=== PATIENT | male | born 1965 | race Caucasian/White ===

== ENCOUNTER 2020-06-12 01:22 | Outpatient (RCR) | payer MEDICAID, SELFPAY | END 2020-06-30 23:59 | disposition home or self-care (01) | LOC: INF 01:22 | PROVIDERS: PCP Family Medicine; Visit Provider Internal Medicine Medical Oncology | DX: R69 Illness, unspecified (principal) ==

== ENCOUNTER 2020-07-10 02:32 | Outpatient (CLI) | payer MEDICAID, SELFPAY | END 2020-07-10 02:52 | PROVIDERS: PCP Family Medicine; Visit Provider Internal Medicine Medical Oncology | DX: C15.5 Malignant neoplasm of lower third of esophagus (principal) | CPT/HCPCS: 36415; 80053; 86850; 86900; 86901; 85025 ==

== ENCOUNTER 2020-07-11 01:39 | Outpatient (RCR) | payer MEDICAID, SELFPAY ==
[2020-07-10 09:26] LABS: Abs Immature Grans 0.06 10^3/uL (0.0-0.06); Absolute Basophil Count 0.03 10^3/uL (0.0-0.2); Absolute Eosinophil Count 0.17 10^3/uL (0.0-0.7); Absolute Lymphocyte Count 0.64 10^3/uL (1.2-3.4); Absolute Monocyte Count 0.43 10^3/uL (0.1-0.8); Absolute Neutrophil Count 3.08 10^3/uL (1.2-6.7); Basophils % 0.7; Eosinophils % 3.9; HCT 21.7 % (40.0-50.0); Immature Grans % 1.4; Lymphocytes % 14.5; MCH 30.2 pg (27.0-33.0); MCHC 32.3 % (32.0-36.0); MCV 93.5 fL (80-95); MPV 8.8 fL (8.0-11.0); Monocytes % 9.8; Neutrophils % 69.7; Nucleated RBC 0 %; RBC 2.32 10^6/uL (4.36-5.78); RDW 13.9 % (11.8-14.1); RDW-SD 46.7 fL; WBC 4.41 10^3/uL (4.4-10.8)
[2020-07-10 09:47] LABS: ALT 12 U/L (16-63); AST 10 U/L (15-37); Albumin 2.5 g/dL (3.4-5.0); Alkaline Phosphatase 41 U/L (46-116); Anion Gap 8.8 mmol/L (3-11); BUN 11 mg/dL (7-18); Bilirubin, Total 0.2 mg/dL (0.2-1.0); CO2 25.2 mmol/L (21.0-32.0); CREATININE 0.76 mg/dL (0.70-1.30); Calcium 8.5 mg/dL (8.5-10.1); Chloride 104 mmol/L (98-107); Glucose 107 mg/dL (74-106); Potassium 4.2 mmol/L (3.5-5.1); Sodium 138 mmol/L (136-145); Total Protein 6.6 g/dL (6.4-8.2)
[2020-07-10 10:26] LABS: Platelet Count 462 10^3/uL (130-400)
[2020-07-10 10:51] LABS: Diff Comment RBC Morph Reviewed
[2020-07-10 10:52] LABS: Poikilocytes 2+
[2020-07-10 10:53] LABS: Hypochromasia 2+; Polychromasia Present
[2020-07-11] VITALS (14 sets, daily range): BP systolic 119–153; BP diastolic 68–82; PULSE 96–123; RESP 17–19; TEMP 36–36.7; O2SAT 99–100
[2020-07-11] MEDS: Acetaminophen Solution 650 MG/20.3 ML CUP 1000 MG PO (09:25)
[2020-07-11] MEDS: Normal Saline Flush 10 ML SYR IVP (09:44)
[2020-07-11] MEDS: Ibuprofen 800 MG TAB PO (14:04)
== END 2020-07-31 23:59 | disposition home or self-care (01) ==
LOC: INF 01:39
PROVIDERS: Internal Medicine Medical Oncology; PCP Family Medicine; Visit Provider Nurse Practitioner Family
DX: C15.5 Malignant neoplasm of lower third of esophagus (principal); R19.7 Diarrhea, unspecified; D63.0 Anemia in neoplastic disease
CPT/HCPCS: 36415; 36430; 80053; 86850; 86900; 86901; 86920; 85025; P9016

== ENCOUNTER 2020-07-17 01:55 | Outpatient (CLI) | payer MEDICAID, SELFPAY ==
[2020-07-17 08:26] LABS: Abs Immature Grans 0.05 10^3/uL (0.0-0.06); Absolute Basophil Count 0.02 10^3/uL (0.0-0.2); Absolute Eosinophil Count 0.07 10^3/uL (0.0-0.7); Absolute Lymphocyte Count 0.48 10^3/uL (1.2-3.4); Absolute Neutrophil Count 2.64 10^3/uL (1.2-6.7); Basophils % 0.5; Eosinophils % 1.9; Immature Grans % 1.4; Lymphocytes % 13.1; MCH 30.9 pg (27.0-33.0); MCHC 33.3 % (32.0-36.0); MCV 92.7 fL (80-95); Monocytes % 10.9; Neutrophils % 72.2; Nucleated RBC 0 %; Platelet Count 483 10^3/uL (130-400); RBC 3.56 10^6/uL (4.36-5.78); RDW 14.4 % (11.8-14.1); RDW-SD 47.8 fL; WBC 3.66 10^3/uL (4.4-10.8)
[2020-07-17 08:43] LABS: ALT 13 U/L (16-63); AST 11 U/L (15-37); Albumin 2.8 g/dL (3.4-5.0); Alkaline Phosphatase 51 U/L (46-116); Anion Gap 9.1 mmol/L (3-11); BUN 9 mg/dL (7-18); Bilirubin, Total 0.2 mg/dL (0.2-1.0); CO2 26.9 mmol/L (21.0-32.0); CREATININE 0.85 mg/dL (0.70-1.30); Calcium 8.8 mg/dL (8.5-10.1); Chloride 102 mmol/L (98-107); Glucose 116 mg/dL (74-106); Potassium 3.5 mmol/L (3.5-5.1); Sodium 138 mmol/L (136-145); Total Protein 7.4 g/dL (6.4-8.2)
== END 2020-07-17 02:15 ==
PROVIDERS: PCP Family Medicine; Visit Provider Internal Medicine Medical Oncology
DX: C15.5 Malignant neoplasm of lower third of esophagus (principal); R19.7 Diarrhea, unspecified
CPT/HCPCS: 36415; 80053; 86850; 86900; 86901; 85025

== ENCOUNTER 2020-07-24 02:11 | Outpatient (CLI) | payer MEDICAID, SELFPAY ==
[2020-07-24 08:23] LABS: Abs Immature Grans 0.03 10^3/uL (0.0-0.06); Absolute Basophil Count 0.03 10^3/uL (0.0-0.2); Absolute Eosinophil Count 0.04 10^3/uL (0.0-0.7); Absolute Lymphocyte Count 0.35 10^3/uL (1.2-3.4); Absolute Monocyte Count 0.66 10^3/uL (0.1-0.8); Basophils % 0.7; Eosinophils % 0.9; HCT 30.5 % (40.0-50.0); Immature Grans % 0.7; Lymphocytes % 7.6; MCH 30.8 pg (27.0-33.0); MCHC 32.8 % (32.0-36.0); MCV 93.8 fL (80-95); MPV 8.9 fL (8.0-11.0); Monocytes % 14.3; Neutrophils % 75.8; Nucleated RBC 0 %; Platelet Count 367 10^3/uL (130-400); RBC 3.25 10^6/uL (4.36-5.78); RDW 15.7 % (11.8-14.1); WBC 4.61 10^3/uL (4.4-10.8)
[2020-07-24 09:33] LABS: ALT 12 U/L (16-63); AST 8 U/L (15-37); Albumin 2.9 g/dL (3.4-5.0); Alkaline Phosphatase 46 U/L (46-116); Anion Gap 9.2 mmol/L (3-11); BUN 13 mg/dL (7-18); Bilirubin, Total 0.3 mg/dL (0.2-1.0); CO2 24.8 mmol/L (21.0-32.0); CREATININE 0.59 mg/dL (0.70-1.30); Calcium 8.6 mg/dL (8.5-10.1); Chloride 104 mmol/L (98-107); Glucose 101 mg/dL (74-106); Potassium 4.3 mmol/L (3.5-5.1); Sodium 138 mmol/L (136-145); Total Protein 6.2 g/dL (6.4-8.2)
== END 2020-07-24 02:31 ==
PROVIDERS: PCP Family Medicine; Visit Provider Internal Medicine Medical Oncology
DX: C15.5 Malignant neoplasm of lower third of esophagus (principal)
CPT/HCPCS: 36415; 80053; 86850; 86900; 86901; 85025

== ENCOUNTER 2020-07-31 04:37 | Outpatient (CLI) | payer MEDICAID, SELFPAY ==
[2020-07-31 08:27] LABS: Abs Immature Grans 0.05 10^3/uL (0.0-0.06); Absolute Basophil Count 0.02 10^3/uL (0.0-0.2); Absolute Eosinophil Count 0.03 10^3/uL (0.0-0.7); Absolute Lymphocyte Count 0.25 10^3/uL (1.2-3.4); Absolute Monocyte Count 0.55 10^3/uL (0.1-0.8); Absolute Neutrophil Count 2.82 10^3/uL (1.2-6.7); Basophils % 0.5; Eosinophils % 0.8; HCT 34.1 % (40.0-50.0); Immature Grans % 1.3; Lymphocytes % 6.7; MCH 30.6 pg (27.0-33.0); MCHC 32.6 % (32.0-36.0); MCV 93.9 fL (80-95); Monocytes % 14.8; Neutrophils % 75.9; Nucleated RBC 0 %; Platelet Count 306 10^3/uL (130-400); RBC 3.63 10^6/uL (4.36-5.78); RDW 16.5 % (11.8-14.1); RDW-SD 54.9 fL; WBC 3.72 10^3/uL (4.4-10.8)
[2020-07-31 08:32] LABS: HGB 11.4 g/dL (13.5-17.5)
[2020-07-31 08:40] LABS: ALT 16 U/L (16-63); AST 13 U/L (15-37); Albumin 3.1 g/dL (3.4-5.0); Alkaline Phosphatase 46 U/L (46-116); Anion Gap 11.2 mmol/L (3-11); BUN 12 mg/dL (7-18); Bilirubin, Total 0.3 mg/dL (0.2-1.0); CO2 24.8 mmol/L (21.0-32.0); CREATININE 0.75 mg/dL (0.70-1.30); Calcium 8.9 mg/dL (8.5-10.1); Chloride 100 mmol/L (98-107); Glucose 98 mg/dL (74-106); Potassium 4.1 mmol/L (3.5-5.1); Sodium 136 mmol/L (136-145); Total Protein 7.1 g/dL (6.4-8.2)
[2020-07-31 08:52] LABS: Magnesium 2.1 mg/dL (1.8-2.4)
== END 2020-07-31 04:57 ==
PROVIDERS: PCP Family Medicine; Visit Provider Internal Medicine Medical Oncology
DX: C15.5 Malignant neoplasm of lower third of esophagus (principal)
CPT/HCPCS: 36415; 80053; 86850; 86900; 86901; 83735; 85025

== ENCOUNTER 2020-08-21 08:52 | Outpatient (RCR) | payer MEDICAID, SELFPAY | END 2020-08-30 23:59 | disposition home or self-care (01) | LOC: INF 08:52 | PROVIDERS: PCP Family Medicine; Visit Provider Internal Medicine Medical Oncology | DX: Z53.9 Procedure and treatment not carried out, unspecified reason (principal) ==

== ENCOUNTER 2020-08-21 08:55 | Outpatient (CLI) | payer MEDICAID, SELFPAY ==
[2020-08-21 09:26] LABS: Abs Immature Grans 0.02 10^3/uL (0.0-0.06); Absolute Basophil Count 0.02 10^3/uL (0.0-0.2); Absolute Eosinophil Count 0.07 10^3/uL (0.0-0.7); Absolute Lymphocyte Count 0.32 10^3/uL (1.2-3.4); Absolute Monocyte Count 0.73 10^3/uL (0.1-0.8); Absolute Neutrophil Count 4.16 10^3/uL (1.2-6.7); Basophils % 0.4; Eosinophils % 1.3; HCT 33.7 % (40.0-50.0); HGB 10.8 g/dL (13.5-17.5); Immature Grans % 0.4; MCH 30.7 pg (27.0-33.0); MCV 95.7 fL (80-95); MPV 9.4 fL (8.0-11.0); Monocytes % 13.7; Neutrophils % 78.2; Nucleated RBC 0 %; Platelet Count 145 10^3/uL (130-400); RBC 3.52 10^6/uL (4.36-5.78); RDW 18.5 % (11.8-14.1); RDW-SD 64.9 fL; WBC 5.32 10^3/uL (4.4-10.8)
[2020-08-21 09:39] LABS: ALT 28 U/L (16-63); AST 19 U/L (15-37); Alkaline Phosphatase 64 U/L (46-116); Anion Gap 4.6 mmol/L (3-11); BUN 29 mg/dL (7-18); Bilirubin, Total 0.2 mg/dL (0.2-1.0); CO2 31.4 mmol/L (21.0-32.0); CREATININE 0.77 mg/dL (0.70-1.30); Chloride 101 mmol/L (98-107); Glucose 116 mg/dL (74-106); Magnesium 2.7 mg/dL (1.8-2.4); Potassium 4.5 mmol/L (3.5-5.1); Sodium 137 mmol/L (136-145)
[2020-08-21 16:10] LABS: PHOSPHORUS 3.9 mg/dL (2.6-4.7)
== END 2020-08-21 09:15 ==
PROVIDERS: PCP Family Medicine; Visit Provider Internal Medicine Medical Oncology
DX: C15.5 Malignant neoplasm of lower third of esophagus (principal)
CPT/HCPCS: 36415; 80053; 86900; 86901; 83735; 84100; 85025

== ENCOUNTER 2020-11-27 02:20 | Outpatient (RCR) | payer MEDICAID, SELFPAY ==
[2020-11-06] MEDS: Normal Saline Flush 10 ML SYR IVP (09:53)
[2020-11-06 10:02] LABS: Abs Immature Grans 0.03 10^3/uL (0.0-0.06); Absolute Basophil Count 0.03 10^3/uL (0.0-0.2); Absolute Eosinophil Count 0.32 10^3/uL (0.0-0.7); Absolute Lymphocyte Count 0.59 10^3/uL (1.2-3.4); Absolute Monocyte Count 0.51 10^3/uL (0.1-0.8); Absolute Neutrophil Count 6.73 10^3/uL (1.2-6.7); Basophils % 0.4; Eosinophils % 3.9; HGB 10.5 g/dL (13.5-17.5); Immature Grans % 0.4; Lymphocytes % 7.2; MCH 30.8 pg (27.0-33.0); MCHC 31.8 % (32.0-36.0); MCV 96.8 fL (80-95); MPV 9.6 fL (8.0-11.0); Monocytes % 6.2; Neutrophils % 81.9; Nucleated RBC 0 %; Platelet Count 331 10^3/uL (130-400); RBC 3.41 10^6/uL (4.36-5.78); RDW 13.1 % (11.8-14.1); RDW-SD 46.3 fL; WBC 8.21 10^3/uL (4.4-10.8)
[2020-11-06 10:26] LABS: ALT 16 U/L (16-63); AST 15 U/L (15-37); Albumin 3.1 g/dL (3.4-5.0); Alkaline Phosphatase 99 U/L (46-116); Anion Gap 9.3 mmol/L (3-11); BUN 14 mg/dL (7-18); Bilirubin, Total 0.3 mg/dL (0.2-1.0); CO2 26.7 mmol/L (21.0-32.0); CREATININE 0.81 mg/dL (0.70-1.30); Calcium 9.1 mg/dL (8.5-10.1); Chloride 104 mmol/L (98-107); Glucose 109 mg/dL (74-106); Sodium 140 mmol/L (136-145); Total Protein 7.6 g/dL (6.4-8.2)
[2020-11-06 17:26] LABS: CEA 2.3 ng/mL (See Note)
[2020-11-13] MEDS: Normal Saline Flush 10 ML SYR IVP (14:11)
[2020-11-13] MEDS: Heparin 500 UNITS/5 ML SYRINGE IV (14:11)
[2020-11-13 14:15] LABS: Abs Immature Grans 0.05 10^3/uL (0.0-0.06); Absolute Basophil Count 0.02 10^3/uL (0.0-0.2); Absolute Eosinophil Count 0.16 10^3/uL (0.0-0.7); Absolute Lymphocyte Count 0.64 10^3/uL (1.2-3.4); Absolute Monocyte Count 0.74 10^3/uL (0.1-0.8); Absolute Neutrophil Count 5.23 10^3/uL (1.2-6.7); Basophils % 0.3; Eosinophils % 2.3; HGB 10.5 g/dL (13.5-17.5); Immature Grans % 0.7; Lymphocytes % 9.4; MCH 31.2 pg (27.0-33.0); MCHC 32.8 % (32.0-36.0); MPV 9.2 fL (8.0-11.0); Monocytes % 10.8; Neutrophils % 76.5; Nucleated RBC 0 %; Platelet Count 270 10^3/uL (130-400); RBC 3.37 10^6/uL (4.36-5.78); RDW 12.8 % (11.8-14.1); WBC 6.84 10^3/uL (4.4-10.8)
[2020-11-13 14:28] LABS: ALT 28 U/L (16-63); AST 25 U/L (15-37); Albumin 3.1 g/dL (3.4-5.0); Alkaline Phosphatase 102 U/L (46-116); Anion Gap 7.2 mmol/L (3-11); BUN 12 mg/dL (7-18); Bilirubin, Total 0.3 mg/dL (0.2-1.0); CO2 26.8 mmol/L (21.0-32.0); Calcium 8.9 mg/dL (8.5-10.1); Chloride 101 mmol/L (98-107); Glucose 106 mg/dL (74-106); Magnesium 2.1 mg/dL (1.8-2.4); Potassium 3.9 mmol/L (3.5-5.1); Sodium 135 mmol/L (136-145); Total Protein 7.6 g/dL (6.4-8.2)
[2020-11-13 22:04] LABS: CEA 2.6 ng/mL (See Note)
[2020-11-27] MEDS: Normal Saline Flush 10 ML SYR IVP (10:45)
[2020-11-27 11:18] LABS: Abs Immature Grans 0.02 10^3/uL (0.0-0.06); Absolute Basophil Count 0.03 10^3/uL (0.0-0.2); Absolute Eosinophil Count 0.21 10^3/uL (0.0-0.7); Absolute Lymphocyte Count 0.72 10^3/uL (1.2-3.4); Absolute Monocyte Count 0.66 10^3/uL (0.1-0.8); Absolute Neutrophil Count 4.63 10^3/uL (1.2-6.7); Basophils % 0.5; Eosinophils % 3.3; HCT 34.6 % (40.0-50.0); HGB 11.1 g/dL (13.5-17.5); Immature Grans % 0.3; Lymphocytes % 11.5; MCH 30.2 pg (27.0-33.0); MCHC 32.1 % (32.0-36.0); MCV 94.3 fL (80-95); MPV 9.8 fL (8.0-11.0); Monocytes % 10.5; Neutrophils % 73.9; Nucleated RBC 0 %; Platelet Count 251 10^3/uL (130-400); RBC 3.67 10^6/uL (4.36-5.78); RDW 13.5 % (11.8-14.1); RDW-SD 46.4 fL; WBC 6.27 10^3/uL (4.4-10.8)
[2020-11-27 11:31] LABS: ALT 27 U/L (16-63); AST 22 U/L (15-37); Albumin 3.1 g/dL (3.4-5.0); Alkaline Phosphatase 107 U/L (46-116); Anion Gap 6.5 mmol/L (3-11); BUN 9 mg/dL (7-18); Bilirubin, Total 0.3 mg/dL (0.2-1.0); CO2 28.5 mmol/L (21.0-32.0); CREATININE 0.79 mg/dL (0.70-1.30); Calcium 8.8 mg/dL (8.5-10.1); Chloride 103 mmol/L (98-107); Glucose 90 mg/dL (74-106); Magnesium 2.1 mg/dL (1.8-2.4); Potassium 3.9 mmol/L (3.5-5.1); Sodium 138 mmol/L (136-145); Total Protein 7.5 g/dL (6.4-8.2)
[2020-11-27 16:55] LABS: CEA 2.5 ng/mL (See Note)
== END 2020-11-30 23:59 | disposition home or self-care (01) ==
LOC: INF 02:20
PROVIDERS: PCP Family Medicine; Visit Provider Internal Medicine Medical Oncology
DX: C15.9 Malignant neoplasm of esophagus, unspecified (principal); Z45.2 Encounter for adjustment and management of vascular access device
CPT/HCPCS: 36591; 80053; 82378; 83735; 85025

== ENCOUNTER 2020-12-18 01:45 | Outpatient (RCR) | payer MEDICAID, SELFPAY ==
[2020-12-04 10:26] LABS: Abs Immature Grans 0.03 10^3/uL (0.0-0.06); Absolute Basophil Count 0.03 10^3/uL (0.0-0.2); Absolute Eosinophil Count 0.24 10^3/uL (0.0-0.7); Absolute Lymphocyte Count 0.57 10^3/uL (1.2-3.4); Absolute Monocyte Count 0.73 10^3/uL (0.1-0.8); Basophils % 0.4; Eosinophils % 3.2; HCT 32.9 % (40.0-50.0); HGB 10.5 g/dL (13.5-17.5); Immature Grans % 0.4; Lymphocytes % 7.7; MCH 30.3 pg (27.0-33.0); MCHC 31.9 % (32.0-36.0); MCV 94.8 fL (80-95); MPV 9.4 fL (8.0-11.0); Monocytes % 9.9; Neutrophils % 78.4; Nucleated RBC 0 %; Platelet Count 227 10^3/uL (130-400); RBC 3.47 10^6/uL (4.36-5.78); RDW 14.2 % (11.8-14.1)
[2020-12-04] MEDS: Normal Saline Flush 10 ML SYR IVP (10:30)
[2020-12-04 10:41] LABS: ALT 30 U/L (16-63); AST 26 U/L (15-37); Albumin 3.1 g/dL (3.4-5.0); Alkaline Phosphatase 133 U/L (46-116); Anion Gap 6.1 mmol/L (3-11); BUN 15 mg/dL (7-18); Bilirubin, Total 0.2 mg/dL (0.2-1.0); CO2 26.9 mmol/L (21.0-32.0); CREATININE 0.66 mg/dL (0.70-1.30); Calcium 8.6 mg/dL (8.5-10.1); Chloride 103 mmol/L (98-107); Glucose 97 mg/dL (74-106); Sodium 136 mmol/L (136-145); Total Protein 7.3 g/dL (6.4-8.2)
[2020-12-04 12:21] LABS: Amylase 43 U/L (25-115); Lipase 109 U/L (73-393)
[2020-12-18] MEDS: Normal Saline Flush 10 ML SYR IVP (09:08)
[2020-12-18 09:19] LABS: Abs Immature Grans 0.02 10^3/uL (0.0-0.06); Absolute Basophil Count 0.02 10^3/uL (0.0-0.2); Absolute Eosinophil Count 0.27 10^3/uL (0.0-0.7); Absolute Lymphocyte Count 0.72 10^3/uL (1.2-3.4); Absolute Monocyte Count 0.61 10^3/uL (0.1-0.8); Absolute Neutrophil Count 5.13 10^3/uL (1.2-6.7); Basophils % 0.3; HCT 37.2 % (40.0-50.0); HGB 12.1 g/dL (13.5-17.5); Immature Grans % 0.3; Lymphocytes % 10.6; MCH 30.6 pg (27.0-33.0); MCHC 32.5 % (32.0-36.0); MCV 93.9 fL (80-95); MPV 9.3 fL (8.0-11.0); Neutrophils % 75.8; Nucleated RBC 0 %; Platelet Count 264 10^3/uL (130-400); RBC 3.96 10^6/uL (4.36-5.78); RDW 15.8 % (11.8-14.1); RDW-SD 54.8 fL; WBC 6.77 10^3/uL (4.4-10.8)
[2020-12-18 09:32] LABS: ALT 25 U/L (16-63); AST 19 U/L (15-37); Albumin 3.4 g/dL (3.4-5.0); Alkaline Phosphatase 117 U/L (46-116); Anion Gap 7.6 mmol/L (3-11); BUN 14 mg/dL (7-18); Bilirubin, Total 0.4 mg/dL (0.2-1.0); CO2 27.4 mmol/L (21.0-32.0); CREATININE 0.84 mg/dL (0.70-1.30); Calcium 9.3 mg/dL (8.5-10.1); Chloride 104 mmol/L (98-107); Glucose 110 mg/dL (74-106); Magnesium 2.2 mg/dL (1.8-2.4); Sodium 139 mmol/L (136-145); Total Protein 8.1 g/dL (6.4-8.2)
[2020-12-18 18:09] LABS: CEA 2.3 ng/mL (See Note)
== END 2020-12-31 23:59 | disposition home or self-care (01) ==
LOC: INF 01:45
PROVIDERS: PCP Family Medicine; Visit Provider Internal Medicine Medical Oncology
DX: C15.9 Malignant neoplasm of esophagus, unspecified (principal); Z45.2 Encounter for adjustment and management of vascular access device; R10.10 Upper abdominal pain, unspecified
CPT/HCPCS: 36591; 80053; 83690; 82150; 82378; 83735; 85025

== ENCOUNTER 2021-01-15 01:24 | Outpatient (RCR) | payer MEDICAID, SELFPAY ==
--- OUTSIDE RECORDS SUMMARY | 2021-01-01 09:35 | XMS_ITS ---
:1965 Author Care Team Providers Name Role Phone KELLEN PEREZ MD Neurologist [phone] KOMAL LANIER MD General Surgeon [phone] PARAMJIT SUN DO OTHER [phone] FARTUN SANTIAGO MD Boat Laborer [phone] CELI BASS Primary Care Provider [phone] WAI MONZON [facility] Pilot Fuel Engineer [phone] Allergies Code Code System Name Reaction Severity Status Onset NKDA ? Medications Name Status Start Date Stop Date ? ? acetaminophen 160 mg/5 mL oral suspension Completed ? 10/06/2020 Take 5 mL every 4 hours by oral route as needed. acetaminophen 650 mg/20.3 mL oral solution Active ? Not available Take 20.3 mL every 4 hours by oral route. Aerochamber Plus Flow-Vu Active ? Not jessica ilable albuterol sulfate HFA 90 mcg/actuation aerosol inhaler Active ? Not available INHALE 2 PUFFS BY MOUTH EVERY 4 TO 6 HOURS NEEDED Anoro Ellipta 62.5 mcg-25 mcg/actuation powder for inhalation Ac tive ? Not available INL 1 PUFF PO QD azithromycin 250 mg tablet Completed ? 01/12 Benadryl Allergy 12.5 mg/5 mL oral liquid Active ? Not available pt to mix equal parts Lidocaine, Maalox , Benadryl, Swallow 5mls of mixture for throat pain PRN. boost plus chocolate liquid Active ? Not available DRINK 1 BOTTLE BY MOUTH 3 TIMES PER DAY Chantix Continuing Month Box 1 mg tablet Completed 009 03/06/2009 1 (one) Tablet: twice daily diltiazem 90 mg tablet Active ? Not avail able TAKE 1 TABLET BY MOUTH 2 TIMES DAILY diltiazem ER 90 mg capsule,extended release 12 hr Active ? Not available Take 1 capsule twice a day by oral route. diphenhydramine 12.5 mg/5 mL oral Active ? Not available elixir Doc-Q-Lace 100 mg capsule Completed ? 2018 doxycycline hyclate 100 mg capsule Active ? Not available TK 2 CS PO ONCE FOR 1 DOSE Enbrel SureClick 50 mg/mL (1 mL) Completed ? 10/27/2019 subcutaneous pen injector Ensure oral liquid Active ? Not available DRINK 1 BOTTLE BY MOUTH 3 TIMES DAILY fluconazole 200 mg tablet Active ? Not av ailable TK 1 T PO QD fluticasone 500 mcg-salmeterol 50 mcg/dose blistr powdr for inha lation Active ? Not available INHALE 1 DOSE BY MOUTH EVERY 12 HOURS RINSE MOUTH AFTER USE folic acid 1 mg tablet Active ? Not avail able gabapentin 100 mg capsule Completed ? 2018 gabapentin 250 mg/5 mL oral solution Active ? Not available TAKE 6 ML BY MOUTH THREE TIMES DAILY gabapentin 300 mg capsule Active ? Not av ailable TAKE 1 CAPSULE BY MOUTH THREE TIMES A DAY. gabapentin 300 mg/6 mL (6 mL) oral solution Active ? Not available Take 6 mL 3 times a day by oral route. Guaifenesin AC 10 mg-100 mg/5 mL oral liquid Completed 07/15/2012 5-10 ml Syrup: every 4 to 6 hours as needed for cough Humira Pen 40 mg/0.8 mL Completed ? 02/21/20 20 subcutaneous kit ibuprofen 100 mg/5 mL oral suspension Active ? Not available TAKE 40 ML BY MOUTH EVERY 8 HOURS NEEDED ibuprofen 800 mg tablet Active ? Not avai lable TK 1 T PO Q 8 H PRN Keflex 500 mg capsule Completed 06/17/2011 07/08/2011 2 (two) Capsule: tid - three times a day ketoconazole 2 % topical cream Active ? N ot available APPLY CREAM EVERY DAY TOPICALLY FOR 14 DAYS lansoprazole 30 mg capsule,delayed release Active ? Not available take 1 capsule by mouth once daily Levaquin 500 mg tablet Completed 01/14/2013 3 1 (one) Tablet: daily levetiracetam 500 mg tablet Completed ? 01/01 Lidocaine Viscous 2 % mucosal solution Active ? Not available TAKE 15 ML BY MOUTH EVERY 6 HOURS NEEDED FOR PAIN lorazepam 0.5 mg tablet Active ? Not avai lable TAKE 1 TABLET BY MOUTH EVERY 8 HOURS NEEDED FOR ANXIETY Maalox Plus Extra Strength 400 mg-400 mg-40 mg/5 mL oral suspens ion Active ? Not available pt to mix equal parts Lidocaine, Maalox , Benadryl, Swallow 5mls of mixture for throat pain PRN. methotrexate sodium 2.5 mg tablet Active ? Not available TAKE 6 TABLETS BY MOUTH ONCE A WEEK methylprednisolone 4 mg tablets in Completed ? 12/06/2019 a dose pack Miralax 17 gram/dose oral powder Active ? Not available Take 17 g every day by oral route. mirtazapine 30 mg tablet Completed ? 019 morphine 10 mg/5 mL oral solution Active ? Not available Take 5 mL every 4 hours by oral route. mupirocin 2 % topical ointment Active ? N ot available APPLY OINTMENT THREE TIMES DAILY TOPICALLY FOR 7 DAYS nicotine 21 mg/24 hr daily transdermal patch Completed 08/29/2011 1 (one) Patch 24HR: daily nystatin 100,000 unit/gram topical powder Active ? Not available APPLY TOPICALLY FOUR TIMES DAILY nystatin 100,000 unit/mL oral suspension Active ? Not available SHAKE LQ AND TK 5 ML PO QID FOR 10 DAYS nystatin powder Active ? Not available Apply topically 4x daily. omeprazole 20 mg capsule,delayed release Completed 012 12/28/[address]: daily omeprazole 40 mg capsule,delayed release Active ? Not available TK 1 C PO D 30 MIN B YANETH AND 30 MIN B DINNER OES ondansetron 4 mg disintegrating tablet Active ? Not available DISSOLVE 1 TABLET IN MOUTH EVERY 8 HOURS NEEDED FOR NAUSEA oxycodone 5 mg/5 mL oral solution Active ? Not available TAKE 5 TO 10 ML BY MOUTH EVERY 4 HOURS NEEDED FOR CANCER ASS OCIATED PAIN paroxetine 30 mg tablet Completed 01/09/2016 10/16/20 16 1 (one) Tablet: 30mg q AM, 20mg q noon Percocet 5 mg-325 mg tablet Completed 03/25/201105/01 1-2 Tablet: every 4-6 hours as needed prednisolone sodium phosphate 5 mg base/5 mL (6.7 mg/5 mL) oral soln Active ? Not available TAKE 5 ML BY MOUTH DAILY prednisone 10 mg tablet Completed ? 01/12/20 19 prednisone 5 mg tablet Active ? Not avail able Prilosec OTC 20 mg tablet,delayed release Completed 201107/15/2012 1 (one) Tab DR: daily prochlorperazine maleate 10 mg tablet Active ? Not available TK 1 T PO Q 6 H PRF NAUSEA Qvar 80 mcg/actuation Metered Aerosol oral inhaler Completed 01/09/2016 04/08/2016 2 (two) Aerosol Soln Aerosol Soln: bid - twice daily senna 8.8 mg/5 mL oral syrup Active ? Not available TAKE 10 ML BY MOUTH ONCE DAILY Spiriva with HandiHaler 18 mcg and Completed ? 12/06/2019 inhalation capsules Stiolto Respimat 2.5 mcg-2.5 mcg/actuation solution for inhalati on Completed ? 02/28/2020 Inhale 2 puffs every day by inhalation route. sucralfate 1 gram tablet Active ? Not jessica ilable DISSOLVE 1 T IN 1 TO 2 TABLESPOONS OF W ATER AND TAKE AFTER MEALS TO HELP WITH SWALLOWING PAIN. trazodone 50 mg tablet Active ? Not avail able TAKE 1 TABLET BY MOUTH ONCE DAILY IN THE EVENING upadacitinib ER 15 mg tablet,extended release 24 hr Active ? Not available Take 1 tablet twice a day by oral route. venlafaxine ER 150 mg Completed ? 01/12/2019 capsule,extended release 24 hr venlafaxine ER 75 mg Completed ? 01/12/2019 capsule,extended release 24 hr Xeljanz 5 mg tablet Active ? Not availabl e Take 1 tablet twice a day by oral route. Xopenex HFA 45 mcg/actuation aerosol inhaler Completed 12/23/2013 2 (two) breath: every 4-6 hours as needed Xylocaine Active ? Not available 2% solution, pt to mix equal parts OTC Maalox & Benadryk, Swallow 10mls of mixture for throat pain PRN. MAX 8 doses daily. Problems Name Status Onset Date Source ? Rheumatoid Arthritis Active 07/20/2019 ? Standard Chest X-ray Abnormal Active 07/20/2019 ? Polyp of Colon Active 08/04/2019 ? Solitary Nodule of Lung Active 08/04/2019 ? Esophageal Mass Active 04/21/2020 ? Abnormal Weight Loss Active 04/25/2020 ? Malignant Tumor of Esophagus Active 05/08/2020 ? Severe Protein-calorie Malnutrition Active 08/15/2020 ? 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 Discussion about Advance Care Planning Active 0 ? with Caregiver Tube Feeding of Patient Active 09/15/2020 ? Anxiety Active ? ? Nicotine Dependence Active ? History Depressive Disorder Active ? History Insomnia Active ? History Acute Exacerbation of Asthma Unknown ? His tory Chronic Obstructive Lung Disease Active ? History Gastroesophageal Reflux Disease Active ? History Chronic Constipation Active ? History Syncope and Collapse Active ? History Amnesia Active ? History Chest Pain Active ? History Dysphagia Active ? History Closed Fracture of Tibia and Fibula, Unknown ? History Shaft Closed Fracture of Lower Leg Unknown ? His tory Procedures Date Name Performed by ? 05/02/2020 EGD/Endoscopy Information not avai lable Notes: distal esophageal mass 03/05/16 min chronic esophagitis, sm hiatal hernia. 02/06/2015 Colonoscopy with Biopsy Information not available Notes: three polyps one b enign and two pre-malignant, Dr. Evelyn Subramanian MD [facility], should have repeat colonoscopy in five years 01/29/2015 Removal of Pilonidal Cyst Information no t available Notes: [facility] patient state s he was in the hospital for 30 days after this surgery 06/17/2011 Orthopedic Surgery Information not avai lable Notes: Pilon ORIF with deep implant r emoval- right ankle 03/25/2011 Open Reduction of Fracture with Internal Fixation Information not available Notes: Right distal tibia 01/05/2019 XR, Cervical Spine, 4 or 5 View [facility] Radiology (Internal) [address] [place] [address] (Work [address]) 01/12/2019 XR, Shoulder, 2 or More View [facility] Radiology (Internal) [address] [place] [address] (Work Place) 06/01/2019 XR, Hand, 3 or More View [facility] Rad[facility] (Internal) [address] [place] [address] (Work Place) 06/01/2019 XR, Wrist, 2 View [facility] Radiology (Internal) [address] [place] [address] (Work Place) 06/01/2019 XR, Foot, 3 or More [facility] [address] [place] [address] (Work Place) 06/09/2019 XR, Wrist, 3 or More View [facility] Radiology (Internal) [address] [place] [address] (Work Place) 06/09/2019 XR, Wrist, 3 or More View [facility] Radiology (Internal) [address] [place] [address] (Work Place) 07/26/2019 CT, Chest, W/o Contrast [facility] Radiology (Internal) [address] [place] [address] (Work Place) 2019 CT, Chest, W/o Contrast [facility] Radiology (Internal) [address] [place] [address] (Work Place) 04/19/2020 XR, Esophagram [facility] [address] [place] [address] (Work Place) 04/21/2020 CT, Chest + Abdomen + Pelvis, W/ [facility] Radiology (Internal) Contrast [address] [place] [address] (Work Place) 04/26/2020 CT, Neck, Soft Tissue, W/ Contrast [facility] Radiology (Internal) [address] [place] [address] (Work Place) 04/26/2020 CT, Chest + Abdomen, W/ Contrast [facility] Radiology (Internal) [address] [place] [address] (Work Place) 05/08/2020 PET-CT, Skull Base to Mid-thigh Scan [facility] Radiology (Internal) [address] [place] [address] (Work Place) 05/11/2020 CT, Chest + Abdomen + Pelvis, W/ [facility] Radiology (Internal) Contrast [address] [place] [address] (Work Place) Results Lab Results Date Name Specimen Result Interpretation Description Value Range Status Address ? 05/08/2020 CBC W/ BLD High Wbc 11.5 5.0-10.0 Final [facility] Auto Diff 10*3/uL 10*3/uL Count [facility] L ab (Internal) : [address] ? ? BLD Low Rbc 4.24 4.60-6.00 Final [place] 10*6/uL 10*6/uL [facility] L ab (Internal) : [address] ? ? BLD Low Hgb 13.6 g/dL 14.0-18.0 Final [facility] g/dL [facility] L ab (Internal) : [address] ? ? BLD ? Hct 42.0 % 41.0-51.0 Final [facility] L ab (Internal) : [address] ? ? BLD High Mcv 99.1 fL 80.0-96.0 Final [facility] L ab (Internal) : [address] ? ? BLD High Mch 32.1 pg 26.0-32.0 Final [facility] L ab (Internal) : [address] ? ? BLD ? Mchc 32.4 g/dL 31.0-35.0 Final Nort [facility] g/dL [facility] L ab (Internal) : [address] ? ? BLD ? Rdw 13.7 % 11.5-14.5 Final [facility] L ab (Internal) : [address] ? ? BLD ? Plt 322 130-450 Final [place] 10*3/uL 10*3/uL [facility] L ab (Internal) : [address] ? ? BLD ? Anc 9.04 ? Final [place] 10*3/uL [facility] L ab (Internal) : [address] ? ? BLD High Nlr 4.71 0.00-3.20 Final [facility] L ab (Internal) : [address] ? ? BLD High Neutro 78.9 % 40.0-75.0 Final [facility] L ab (Internal) : [address] ? ? BLD Low Lymph 16.7 % 20.0-50.0 Final [facility] ([facility] : [address] ? ? BLD ? Casey 3.2 % 2.0-10.0 Final [facility] (Internal) : [address] ? ? BLD Low Eos 0.5 % 1.0-6.0 % Final [facility] (Internal) : [address] ? ? BLD ? Baso 0.3 % 0.0-1.0 % Final [place] (Internal) : [address] ? ? BLD ? Ig 0.4 % 0.0-0.9 % Final [place] [facility] (Internal) : [address] 05/08/2020 CMP, Serum S High g/r 122 mg/dL 74-106 Final [facility] or Plasma mg/dL [facility] (Internal) : [address] ? ? S ? Bun 9 mg/dL 9-20 Final [facility] mg/dL [facility] (Internal) : [address] ? ? S ? Crea 0.90 0.66-1.25 Final [facility] mg/dL mg/dL [facility] (Internal) : [address] ? ? S ? Ca 9.4 mg/dL 8.4-10.2 Final [facility] mg/dL [facility] (Internal) : [address] ? ? S ? Na 141 137-145 Final [facility] mmol/L mmol/L [facility] (Internal) : [address] ? ? S ? K 4.5 3.5-5.1 Final [facility] mmol/L mmol/L [facility] (Internal) : [address] ? ? S ? Cl 105 98-107 Final [facility] mmol/L mmol/L [facility] (Internal) : [address] ? ? S ? Tco2 26.0 22.0-30.0 Final [facility] mmol/L mmol/L [facility] (Internal) : [address] ? ? S ? Tp 7.9 g/dL 6.3-8.2 Final [facility] g/dL [facility] L ab (Internal) : [address] ? ? S ? Alb 4.3 g/dL 3.5-5.0 Final [place] g/dL [facility] L [facility] (Internal) : [address] ? ? S ? Tbil 0.4 mg/dL 0.2-1.3 Final [place] mg/dL [facility] L ab (Internal) : [address] ? ? S ? Alp 67 U/L 50-136 Final [place] U/L [facility] L [facility] (Internal) : [address] ? ? S Low Alt 13 U/L 21-72 U/L Final [place] (Sgpt) [facility] L ab (Internal) : [address] ? ? S ? Ast 23 U/L 17-59 U/L Final [place] (Sgot) [facility] L [facility] (Internal) : [address] 05/08/2020 PSA, Serum S ? PSA Scrn 1.2 NG/mL 0.0-4.0 Fi nal [place] or Plasma NG/mL [facility] (Internal) : [address] 05/02/2020 Pathology TISS ? Report (see ? Corrected [place] Study below) [facility] (Internal) : [address] 04/19/2020 Tick-borne S ? Ehrlichi <1:64 <1:64 Final [place] Disease a titer titer [facility] Panel [facility] is (Hme) (Interna l): Ab, IgG [address] ? ? S ? Anaplasm <1:64 <1:64 Final [place] a titer titer Country Phagocyto Hospita l Lab philum (Internal) : Ab, IgG,S [address] ? ? S ? Babesia <1:64 <1:64 Final [place] Microti titer titer Country IgG Ab, S Hospita l Lab (Internal) : [address] ? ? S ? Lyme negative negative Final [place] Disease Country Serology, Hospita l Lab S (Internal) : [address] 11/02/2019 CBC W/ BLD High Wbc 10.8 5.0-10.0 Final [facility] Auto Diff 10*3/uL 10*3/uL [facility] L [facility] (Internal) : [address] ? ? BLD Low Rbc 4.34 4.60-6.00 Final [place] 10*6/uL 10*6/uL [facility] L ab (Internal) : [address] ? ? BLD - Hgb 14.4 g/dL 14.0-18.0 Final [facility] g/dL [facility] L ab (Internal) : [address] ? ? BLD - Hct 43.2 % 41.0-51.0 Final [facility] Hospital L ab (Internal) : [address] ? ? BLD High Mcv 99.5 fL 80.0-96.0 Final [facility] Hospital L ab (Internal) : [address] ? ? BLD High Mch 33.2 pg 26.0-32.0 Final [facility] L ab (Internal) : [address] ? ? BLD - Mchc 33.3 g/dL 31.0-35.0 Final [facility] g/dL [facility] L ab (Internal) : [address] ? ? BLD - Rdw 13.8 % 11.5-14.5 Final [facility] L ab (Internal) : [address] ? ? BLD - Plt 296 130-450 Final [place] 10*3/uL 10*3/uL [facility] L [facility] (Internal) : [address] ? ? BLD - Anc 7.10 ? Final [place] 10*3/uL [facility] L ab (Internal) : [address] ? ? BLD - Neutro 65.7 % 40.0-75.0 Final [facility] L ab (Internal) : [address] ? ? BLD - Lymph 21.4 % 20.0-50.0 Final [facility] L [facility] (Internal) : [address] ? ? BLD - Casey 9.5 % 2.0-10.0 Final [facility] (Internal) : [address] ? ? BLD - Eos 2.5 % 1.0-6.0 % Final [facility] (Internal) : [address] ? ? BLD - Baso 0.5 % 0.0-1.0 % Final [place] (Internal) : [address] ? ? BLD - Ig 0.4 % 0.0-0.9 % Final [place] [facility] (Internal) : [address] 11/02/2019 CMP, Serum S - g/r 102 mg/dL 74-106 Final [facility] or Plasma mg/dL [facility] (Internal) : [address] ? ? S - Bun 19 mg/dL 9-20 Final [facility] mg/dL [facility] (Internal) : [address] ? ? S - Crea 0.90 0.66-1.25 Final [facility] mg/dL mg/dL [facility] (Internal) : [address] ? ? S - Ca 9.5 mg/dL 8.4-10.2 Final [facility] mg/dL [facility] (Internal) : [address] ? ? S - Na 141 137-145 Final [facility] mmol/L mmol/L [facility] (Internal) : [address] ? ? S - K 4.1 3.5-5.1 Final [facility] mmol/L mmol/L [facility] (Internal) : [address] ? ? S - Cl 104 98-107 Final [facility] mmol/L mmol/L [facility] (Internal) : [address] ? ? S - Tco2 28.0 22.0-30.0 Final [facility] mmol/L mmol/L [facility] (Internal) : [address] ? ? S - Tp 7.7 g/dL 6.3-8.2 Final [facility] g/dL [facility] (Internal) : [address] ? ? S - Alb 4.1 g/dL 3.5-5.0 Final [facility] g/dL [facility] (Internal) : [address] ? ? S - Tbil 0.4 mg/dL 0.2-1.3 Final [facility] mg/dL [facility] (Internal) : [address] ? ? S - Alp 62 U/L 50-136 Final [facility] U/L [facility] (Internal) : [address] ? ? S Low Alt 14 U/L 21-72 U/L Final [place] (Sgpt) [facility] (Internal) : [address] ? ? S - Ast 28 U/L 17-59 U/L Final [facility] (Sgot) [facility] (Internal) : [address] 10/07/2019 CRP, High S - Rcrp 0.22 0.10-0.30 Final [facility] Sensitivit mg/dL mg/dL Countr y y, Serum Hospital Lab or Plasma (Um Nurse al): [address] 06/21/2019 CMP, Serum S High g/r 107 mg/dL 74-106 Final [facility] or Plasma mg/dL [facility] (Internal) : [address] ? ? S - Bun 18 mg/dL 9-20 Final [facility] mg/dL [facility] (Internal) : [address] ? ? S - Crea 1.00 0.66-1.25 Final [facility] mg/dL mg/dL [facility] (Internal) : [address] ? ? S - Ca 9.3 mg/dL 8.4-10.2 Final [facility] mg/dL [facility] (Internal) : [address] ? ? S - Na 140 137-145 Final [facility] mmol/L mmol/L [facility] (Internal) : [address] ? ? S - K 4.7 3.5-5.1 Final [facility] mmol/L mmol/L [facility] (Internal) : [address] ? ? S - Cl 105 98-107 Final [facility] mmol/L mmol/L [facility] (Internal) : [address] ? ? S - Tco2 29.0 22.0-30.0 Final [place] mmol/L mmol/L [facility] (Internal) : [address] ? ? S - Tp 7.6 g/dL 6.3-8.2 Final [place] g/dL [facility] L ab (Internal) : [address] ? ? S - Alb 4.2 g/dL 3.5-5.0 Final [place] g/dL [facility] L ab (Internal) : [address] ? ? S - Tbil 0.4 mg/dL 0.2-1.3 Final [place] mg/dL [facility] L ab (Internal) : [address] ? ? S - Alp 64 U/L 50-136 Final [place] U/L [facility] L ab (Internal) : [address] ? ? S Low Alt 19 U/L 21-72 U/L Final [place] (Sgpt) [facility] L ab (Internal) : [address] ? ? S - Ast 22 U/L 17-59 U/L Final [place] (Sgot) [facility] L ab (Internal) : [address] 06/09/2019 Uric Acid, S - Urca 6.0 mg/dL 3.5-8.5 Final [place] Serum or mg/dL [facility] Plasma Hospital L ab (Internal) : [address] 06/09/2019 CBC W/ BLD - Wbc 8.1 5.0-10.0 Final Nort [facility] Auto Diff 10*3/uL 10*3/uL [facility] Hospital L ab (Internal) : [address] ? ? BLD - Rbc 4.70 4.60-6.00 Final [place] 10*6/uL 10*6/uL [facility] L ab (Internal) : [address] ? ? BLD - Hgb 15.0 g/dL 14.0-18.0 Final [facility] g/dL [facility] L ab (Internal) : [address] ? ? BLD - Hct 45.4 % 41.0-51.0 Final [place] % [facility] (Internal) : [address] ? ? BLD High Mcv 96.6 fL 80.0-96.0 Final [facility] Hospital L ab (Internal) : [address] ? ? BLD - Mch 31.9 pg 26.0-32.0 Final [facility] L ab (Internal) : [address] ? ? BLD - Mchc 33.0 g/dL 31.0-35.0 Final Nort [facility] g/dL [facility] L ab (Internal) : [address] ? ? BLD - Rdw 13.8 % 11.5-14.5 Final [facility] Hospital L ab (Internal) : [address] ? ? BLD - Plt 299 130-450 Final [place] 10*3/uL 10*3/uL [facility] L ab (Internal) : [address] ? ? BLD - Anc 5.14 ? Final [place] 10*3/uL [facility] L ab (Internal) : [address] ? ? BLD - Neutro 63.1 % 40.0-75.0 Final [facility] L ab (Internal) : [address] ? ? BLD - Lymph 23.5 % 20.0-50.0 Final [facility] L [facility] (Internal) : [address] ? ? BLD - Casey 8.4 % 2.0-10.0 Final [facility] L [facility] (Internal) : [address] ? ? BLD - Eos 3.8 % 1.0-6.0 % Final [facility] L ab (Internal) : [address] ? ? BLD - Baso 0.6 % 0.0-1.0 % Final [facility] Hospital L ab (Internal) : [address] ? ? BLD - Ig 0.6 % 0.0-0.9 % Final [facility] L ab (Internal) : [address] 06/09/2019 CRP, High S - Rcrp 0.26 0.10-0.30 [facility] Countr y y, Serum Hospital Lab or Plasma (Um Nurse al): [address] 06/09/2019 ESR BLD - Esr 4 mm/h 0-20 mm/h Final [facility] (Erythrocy Countr y te Hospital L ab Sedimentat (Inter nal): ion Rate), [address] 06/09/2019 Rf BLD ABNORMAL Rf positive negative Final [place] (Rheumatoi [IU]/mL < 10 Count ry d Factor), [IU]/mL Hospi curt Lab Serum (Internal) : [address] 06/09/2019 Rf BLD - Rfq >320 ? Final [place] (Rheumatoi {titer} Count ry d Factor), Hospit al Lab Titer, (Internal) : Serum [address] 06/09/2019 Cyclic S High Cyclic 80.0 U <20.0 Final [place] Citrullina Citrullin (negative Country poly ated ) U Hospital L ab Peptide Peptide (Interna l): Ab, Quant Ab, S [address] , [place] w[place] y, Serum 06/09/2019 GT S - GT negative negat Final Nort h ([facility]inucle [facility] Antibodies (Inter nal): ) Screen, [address] Past Encounters 10/23/2020 Candidal Balanitis; Cellulitis of Penis; Adenocarcinoma of Lower Esophagus; Discussion about Advance Care Planning with Caregiver NIDHI Orellana: [address] [place] [phone], Ph. 10/17/2020 Adenocarcinoma of Lower Esophagus; Abnor mal Weight Loss NIDHI Orellana: [address] [place] [phone], Ph. 09/13/2020 Adenocarcinoma of Lower Esophagus; Abnor mal Weight Loss; Discussion about Advance Care Planning with Caregiver; Administration of Influenza Vaccine NIDHI Orellana: [address] [place] [phone], Ph. 08/18/2020 Adenocarcinoma of Lower Esophagus; Abnor mal Weight Loss; Discussion about Advance Care Planning with Caregiver NIDHI Orellana: [address] [place] [phone], Ph. 05/08/2020 Malignant Tumor of Esophagus; Anxiety; S creening for Malignant Neoplasm of Prostate NIDHI Orellana: [address] [place] [phone], Ph. 04/21/2020 Esophageal Mass; Gastroesophageal Reflux Disease NIDHI Orellana: [address] [place] [phone], Ph. 04/19/2020 Gastroesophageal Reflux Disease; Chronic Obstructive Lung Disease; Rheumatoid Arthritis; Tick Bite NIDHI Orellana: [address] [place] [phone], Ph. 02/23/2020 Chronic Obstructive Lung Disease Fartun Santiago MD: [address] [place] [address], Ph. 12/21/2019 Rheumatoid Arthritis; Gastroesophageal R eflux Disease; Chronic Obstructive Lung Disease NIDHI Orellana: [address] [place] [phone], Ph. 12/06/2019 Chronic Obstructive Lung Disease Fartun Santiago MD: [address] [place] [phone], Ph. 11/02/2019 Gastroesophageal Reflux Disease; Rheumat oid Arthritis NIDHI Orellana: [address] [place] [phone], Ph. 2019 Chronic Obstructive Lung Disease; Tomogr aphy - Chest Abnormal Fartun Santiago MD: [address] [place] [phone], Ph. 09/29/2019 Gastroesophageal Reflux Disease; Screeni ng for Malignant Neoplasm of Colon Komal Lanier MD: [address] [facility] [place] [phone], Ph. 09/21/2019 Rheumatoid Arthritis; Solitary Nodule of Lung; Administration of Influenza Vaccine NIDHI Orellana: [address] [place] [phone], Ph. 07/20/2019 Rheumatoid Arthritis; Standard Chest X-r ay Abnormal NIDHI Orellana: [address] [place] [phone], Ph. Social History Tobacco Smoking Status Current Every Day Smoker Notes: 1 pack daily Vaccine List Vaccine Type influenza, injectable, quadrivalent 09/13/2020?0.5 mL influenza, injectable, quadrivalent, pre servative free 09/21/2019?0.5 mL 09/13/2020?0.5 mL influenza, seasonal, injectable 09/14/2016 Tdap 10/16/2016?0.5 mL Notes: no flu shot 01/12/2019 Plan of Care Reminders Provider Appointments None ? ? recorded. Lab None ? ? recorded. Referral None ? ? recorded. Procedures None ? ? recorded. Surgeries None ? ? recorded. Imaging None ? ? recorded. Vitals 10/23/2020 03:40PM Acute 40 Height Weight BMI 172.72 cm 58.66 kg 19.7 kg/m2 10/17/2020 03:40PM Follow Up 40 Height Weight BMI 172.72 cm 60.33 kg 20.2 kg/m2 09/13/2020 04:20PM Home Visit 40 Height Weight BMI Blood Pressure 172.72 cm 58.68 kg 19.7 kg/m2 110/76 mm[Hg] 08/18/2020 04:20PM Home Visit 40 Height Weight BMI Blood Pressure 172.72 cm 51.96 kg 17.4 kg/m2 90/60 mm[Hg] 05/08/2020 11:20AM Same Day 20 Height Weight BMI Blood Pressure 172.72 cm 68.45 kg 22.9 kg/m2 110/74 mm[Hg] 04/21/2020 10:40AM Acute 20 Height 172.72 cm 04/19/2020 10:00AM Follow Up 40 Height Weight BMI Blood Pressure 172.72 cm 70.22 kg 23.5 kg/m2 122/76 mm[Hg] 02/23/2020 03:00PM Follow Up 30 Height Weight BMI Blood Pressure 172.72 cm 73 kg 24.5 kg/m2 131/72 mm[Hg] 12/21/2019 01:40PM Follow Up 40 Height Weight BMI Blood Pressure 172.72 cm 73.89 kg 24.8 kg/m2 120/76 mm[Hg] 12/06/2019 09:45AM Follow Up 30 Height Weight BMI Blood Pressure 172.72 cm 73.8 kg 24.7 kg/m2 106/72 mm[Hg] 11/02/2019 08:40AM Follow Up 40 Height Weight BMI Blood Pressure 172.72 cm 70.99 kg 23.8 kg/m2 102/58 mm[Hg] 2019 09:00AM Consult 45 Height Weight BMI Blood Pressure 172.72 cm 71.5 kg 24 kg/m2 124/72 mm[Hg] 09/29/2019 02:30PM Office 15 Height Blood Pressure 172.72 cm 136/78 mm[Hg] 09/21/2019 08:40AM Follow Up 20 Height Weight BMI Blood Pressure 172.72 cm 71.67 kg 24 kg/m2 138/88 mm[Hg] 07/20/2019 08:40AM Follow Up 40 Height Weight BMI Blood Pressure 172.72 cm 71.99 kg 24.1 kg/m2 104/76 mm[Hg] 06/18/2019 10:20AM Follow Up 40 Height Weight BMI Blood Pressure 172.72 cm 71.67 kg 24 kg/m2 110/82 mm[Hg] 06/01/2019 02:40PM Follow Up 40 Height Weight BMI Blood Pressure 172.72 cm 70.76 kg 23.7 kg/m2 112/82 mm[Hg] 01/12/2019 08:40AM Office C[facility] 40 Height Weight BMI Blood Pressure 172.72 cm 73.26 kg 24.6 kg/m2 132/88 mm[Hg] 01/05/2019 02:00PM Acute 40 Weight Blood Pressure 70.99 kg 124/78 mm[Hg] 10/16/2016 Height Weight Blood Pressure 176.53 cm 86.3 kg 130/88 mm[Hg] 04/20/2014 Height Weight 170.18 cm 70.99 kg 10/20/2013 Height Weight Blood Pressure 170.18 cm 70.31 kg 124/77 mm[Hg] 09/09/2013 Height Weight Blood Pressure 170.18 cm 71.35 kg 122/72 mm[Hg] 08/05/2013 Height Weight Blood Pressure 170.18 cm 71.67 kg 112/74 mm[Hg] 07/21/2013 Height Weight Blood Pressure 170.18 cm 70.4 kg 121/73 mm[Hg] 07/15/2013 Weight Blood Pressure 70.81 kg 100/72 mm[Hg] 06/28/2013 Height Weight Blood Pressure 170.18 cm 69.72 kg (1) 120/80 mm[Hg] (2) 110/68 mm[Hg] 01/14/2013 Height Weight Blood Pressure 172.72 cm 72.57 kg 98/64 mm[Hg] 07/15/2012 Height Weight Blood Pressure 172.72 cm 72.39 kg 100/66 mm[Hg] 02/13/2012 Height Weight Blood Pressure 172.72 cm 69.63 kg 98/60 mm[Hg] 02/06/2012 Height Weight Blood Pressure 172.72 cm 69.67 kg 104/66 mm[Hg] 08/29/2011 Height Weight Blood Pressure 172.72 cm 74.84 kg 112/70 mm[Hg] 06/25/2011 Height Weight 172.72 cm 74.84 kg 05/30/2011 Height Weight 172.72 cm 74.39 kg 09/24/2010 Weight Blood Pressure 74.14 kg 126/80 mm[Hg] 03/28/2010 Weight Blood Pressure 74.39 kg 136/80 mm[Hg] 03/06/2009 Weight Blood Pressure 68.04 kg 100/68 mm[Hg] 03/22/2008 Weight Blood Pressure 71.67 kg 90/68 mm[Hg] 01/06/2007 Weight Blood Pressure 72.57 kg 106/68 mm[Hg]
--- OUTSIDE RECORDS SUMMARY | 2021-01-01 09:35 | XMS_ITS | Encounter Summary ---
:1965 Author Care Team Providers Name Role Phone Anmol Loving Primary Care Provider [phone] Kaylee Montaño DO OTHER [phone] Komal Barber MD General Surgeon [phone] Fartun Santiago MD Functional Director [phone] Kofi Anderson MD Neurologist [phone] Sean Sibleysw Manager Of Corporate Communications [phone] Reason for Visit Malignant tumor of esophagus; Phone Call Visit Assessment and Plan 1. 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 Patient is in good spirits considering his diagnosis. Anticipate chemotherapy port placement on 10/24/2020 at [facility] and follow-up with Dr. Baeza hematology-oncology at [facility] on 11/06/2020. Advised patient he will need home health servic es when he restarts chemotherapy. Tanner vargas repeat home health order from Dr. Tellez. Otherwise we can repeat the order for home health. Have asked to call us with any question or concern. 09/13/2020: Condition stable at this pito e. Weight gain, up to 129.4 pounds is encouraging. Anticipate multiple visits at [facility] tomorrow 09/14/2020. He has CT scan, PET scan, consults with Dr. Daniel velasquez, Wicho Ortiz and also has nutrit ion consult. Directed Mr. Barroso to contact us with any question or concern. 40-minute home visit 4:52 PM?5:32 PM. 08/18/2020: Reviewed treatment to date wi th Mr. Barroso during home visit. We will contact Dr. Baeza, hematology/oncology at [facility] in [place] regarding possible standing order for IV fluids through outpatient t [facility] at [facility] in [place], lab draws at [facility] with results to be reported to Dr. Baeza. Reviewed COLST and advanced directive fo ghazal with Mr. Barroso. Also discussed enrollment for hospice. He is not ready to complete these forms during today's visit, defers hospice at this time. I need to talk this over with my daughter. Have encouraged Mr. Barroso to contact us with any question or concern. Will see him for home visits prn. Greater than 50% of today's 40-minute [facility] visit counseling and coordination of care. 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 Start referral to hem-onc at [facility]. Will contact hem-onc and ask if patient needs PET/CT before he is seen. Addendum: Case reviewed with [facility] hem-on c. Have ordered PET/CT eyes to thighs at [facility], tentatively scheduled 05/13/2020. Check CBC and CMP. Follow-up in clinic after hem-onc consult. Addendum: Case reviewed with Dr. Barber. Will also refer to thoracic surgery at [facility] 2. Abnormal weight loss 10/17/2020: Unfortunately ther e was progression of disease on surgery at [facility] 10/04/2020 therefore planned esophagectomy was not completed. Wt reportedly stable at 133 lb on 10/15/2020. Patient is in good spirits considering his diag nosis. Anticipate chemotherapy port placement on 10/24/2020 at [facility] and follow-up with Dr. Baeza hematology-oncology at [facility] on 11/06/2020. A dvised patient he will need home health services when he restarts chemotherapy. Anticipate repeat home health order from Dr. Tellez. Otherwise we can repeat the order for home health. Have asked to call us with any question or concern. 09/13/2020: Condition stable at this pito e. Weight gain, up to 129.4 pounds is encouraging. Anticipate multiple visits at [facility] tomorrow 09/14/2020. He has CT scan, PET scan, consults with Dr. Daniel velasquez, Wicho Ortiz and also has nutrit ion consult. Directed Mr. Barroso to contact us with any question or concern. 40-minute home visit 4:52 PM?5:32 PM. 08/18/2020: Reviewed treatment to date wi th Mr. Barroso during home visit. We will contact Dr. Baeza, hematology/oncology at [facility] in [place] regarding possible standing order for IV fluids through outpatient t [facility] at [facility] in [place], lab draws at [facility] with results to be reported to Dr. Baeza. Reviewed COLST and advanced directive fo ghazal with Mr. Barroso. Also discussed enrollment for hospice. He is not ready to complete these forms during today's visit, defers hospice at this time. I need to t alk this over with my daughter. Have en couraged Mr. Barroso to contact us with any question or concern. Will see him for home visits prn. Greater than 50% of today's 40-minute home visit counseling and coordination of care. 04/25/2020: Order Ensure 1 can tid #90 x 5. Rx may be rejected. 8 pound weight loss. 162 pound?12/06/2019, 154 pound?04/27/2020. BMI 23.5. 04/21/2020: Barium swallow. Impression: Irregular ulcerated mass distal esophagus highly suspicious for esophageal carcinoma. Endoscopy should be performed. I have called [facility] for Dr. Barber. Request move up E GD from 05/09/2020 if possible. Reviewed barium swallow report with Mr. Barroso and his dtr. Explained we need EGD and biopsy for pathology before we can refer to hem atology?oncology. Patient requests [facility] when we do set up referral. We are trying to move up EGD from 05/09/2020. Order CT C/A/P for today. Recommend Ensure to help prevent additional weight loss. Also try ice cream, Jell-O, Pedialyte. W ill contact Mr. Barroso with CT report. Discussion Note: None recorded.Patient educational handouts: No information available. Plan of Care Reminders Provider Appointments None ? ? recorded. Lab None ? ? recorded. Referral None ? ? recorded. Procedures None ? ? recorded. Surgeries None ? ? recorded. Imaging None ? ? recorded. Medications Name Start Date ? ? acetaminophen 650 mg/20.3 mL oral solution ? Take 20.3 mL every 4 hours by oral route. Aerochamber Plus Flow-Vu ? albuterol sulfate HFA 90 mcg/actuation aerosol inhaler ? INHALE 2 PUFFS BY MOUTH EVERY 4 TO 6 HOURS NEEDED Anoro Ellipta 62.5 mcg-25 mcg/actuation powder for inh alation ? INL 1 PUFF PO QD Benadryl Allergy 12.5 mg/5 mL oral liquid ? pt to mix equal parts Lidocaine, Maalox , Benadryl, Swallow 5mls of mixture for throat pain PRN. boost plus chocolate liquid ? DRINK 1 BOTTLE BY MOUTH 3 TIMES PER DAY diltiazem 90 mg tablet ? TAKE 1 TABLET BY MOUTH 2 TIMES DAILY diltiazem ER 90 mg capsule,extended release 12 hr ? Take 1 capsule twice a day by oral route. diphenhydramine 12.5 mg/5 mL oral elixir ? Ensure oral liquid ? DRINK 1 BOTTLE BY MOUTH 3 TIMES DAILY fluconazole 200 mg tablet ? TK 1 T PO QD fluticasone 500 mcg-salmeterol 50 mcg/dose blistr powd r for inhalation ? INHALE 1 DOSE BY MOUTH EVERY 12 HOURS RINSE MOUTH AFT ER USE folic acid 1 mg tablet ? Take 1 tablet every day by oral route for 30 days. gabapentin 250 mg/5 mL oral solution ? TAKE 6 ML BY MOUTH THREE TIMES DAILY gabapentin 300 mg/6 mL (6 mL) oral solution ? Take 6 mL 3 times a day by oral route. ibuprofen 100 mg/5 mL oral suspension ? TAKE 40 ML BY MOUTH EVERY 8 HOURS NEEDED ibuprofen 800 mg tablet ? TK 1 T PO Q 8 H PRN ketoconazole 2 % topical cream ? APPLY CREAM EVERY DAY TOPICALLY FOR 14 DAYS lansoprazole 30 mg capsule,delayed release ? take 1 capsule by mouth once daily Lidocaine Viscous 2 % mucosal solution ? TAKE 15 ML BY MOUTH EVERY 6 HOURS NEEDED FOR PAIN lorazepam 0.5 mg tablet ? TAKE 1 TABLET BY MOUTH EVERY 8 HOURS NEEDED FOR AN XIETY Maalox Plus Extra Strength 400 mg-400 mg-40 mg/5 mL or al suspension ? pt to mix equal parts Lidocaine, Maalox , Benadryl, Swallow 5mls of mixture for throat pain PRN. methotrexate sodium 2.5 mg tablet ? TAKE 6 TABLETS BY MOUTH ONCE A WEEK Miralax 17 gram/dose oral powder ? Take 17 g every day by oral route. morphine 10 mg/5 mL oral solution ? Take 5 mL every 4 hours by oral route. mupirocin 2 % topical ointment ? APPLY OINTMENT THREE TIMES DAILY TOPICALLY FOR 7 DAYS nystatin 100,000 unit/gram topical powder ? APPLY TOPICALLY FOUR TIMES DAILY nystatin 100,000 unit/mL oral suspension ? SHAKE LQ AND TK 5 ML PO QID FOR 10 DAYS nystatin powder ? Apply topically 4x daily. omeprazole 40 mg capsule,delayed release ? TK 1 C PO D 30 MIN B YANETH AND 30 MIN B DINNER OES ondansetron 4 mg disintegrating tablet ? DISSOLVE 1 TABLET IN MOUTH EVERY 8 HOURS NEEDED FO R NAUSEA oxycodone 5 mg/5 mL oral solution ? TAKE 5 TO 10 ML BY MOUTH EVERY 4 HOURS NEEDED FOR CANCER ASSOCIATED PAIN prednisolone sodium phosphate 5 mg base/5 mL (6.7 mg/5 mL) oral soln ? TAKE 5 ML BY MOUTH DAILY prednisone 5 mg tablet ? Take 1 tablet every week by oral route for 30 days. prochlorperazine maleate 10 mg tablet ? TK 1 T PO Q 6 H PRF NAUSEA senna 8.8 mg/5 mL oral syrup ? TAKE 10 ML BY MOUTH ONCE DAILY Stiolto Respimat 2.5 mcg-2.5 mcg/actuation solution fo r inhalation ? sucralfate 1 gram tablet ? DISSOLVE 1 T IN 1 TO 2 TABLESPOONS OF W ATER AND TAKE AFTER MEALS TO HELP WITH SWALLOWING PAIN. trazodone 50 mg tablet ? TAKE 1 TABLET BY MOUTH ONCE DAILY IN THE EVENING upadacitinib ER 15 mg tablet,extended release 24 hr ? Take 1 tablet twice a day by oral route. Xeljanz 5 mg tablet ? Take 1 tablet twice a day by oral route. Xylocaine ? 2% solution, pt to mix equal parts OTC Maalox & Benadryk, Swallow 10mls of mixture for throat pain PRN. MAX 8 doses daily. Medications Administered None recorded. Vitals Height Weight BMI 5 ft 8 in 133 lbs 20.2 kg/m2 Results Lab Results None recorded. Allergies Code Code System Name Reaction Severity Onset NKDA ? ? ? Problems Name Status Onset Date Source ? [...] Active ? History Insomnia Active ? History Chronic Obstructive Lung Disease Active ? History Gastroesophageal Reflux Disease Active ? History Chronic Constipation Active ? History Syncope and Collapse Active ? History Amnesia Active ? History Chest Pain Active ? History Dysphagia Active ? History Procedures Date Name Performed by ? 05/02/2020 EGD/Endoscopy Information not avai lable Notes: distal esophageal mass 03/05/16 min chronic esophagitis, sm hiatal hernia. 02/06/2015 Colonoscopy with Biopsy Information not available Notes: three polyps one b enign and two pre-malignant, Dr. Evelyn Subramanian MD [facility], [facility], should have repeat colonoscopy in five years 01/29/2015 Removal of Pilonidal Cyst Information no t available Notes: [facility] patient state s he was in the hospital for 30 days after this surgery 06/17/2011 Orthopedic Surgery Information not avai lable Notes: Pilon ORIF with deep implant r emoval- right ankle 03/25/2011 Open Reduction of Fracture with Internal Fixation Information not available Notes: Right distal tibia Vaccine List Vaccine Type influenza, injectable, quadrivalent 09/13/2020?0.5 mL influenza, injectable, quadrivalent, pre servative free 09/21/2019?0.5 mL 09/13/2020?0.5 mL influenza, seasonal, injectable 09/14/2016 Tdap 10/16/2016?0.5 mL Notes: no flu shot 01/12/2019 Social History Tobacco Smoking Status Current Every Day Smoker Notes: 1 pack daily Use IV drugs? N Chewing tobacco none Most Recent Tobacco Use 06/18/2019 Screening E-cigarette/Vape Status Never used electronic cigarettes Advance directive Y Do you feel safe at home? Y Tobacco-years of use 42 Notes: since age 14 1-2 PPD Any marijuana use? N Any Vapor tobacco use? N Tobacco smoke exposure Y Illicit drug use? N Alcohol intake Moderate Notes: off and on history of heavy dri nking, has cut back 1- 6 pa ck per week Smokeless Tobacco Status Never used smokeless tobacco Smoking - patient's current 30ormorepackyears pack years? Have you fallen in the last N 12 months? Functional Status Unknown. Past Encounters 10/17/2020 Adenocarcinoma of Lower Esophagus; Abnor mal Weight Loss NIDHI Orellana: [address] [place] [phone], Ph. History of Present Illness Note: <p>10/17/2020: The patient is home. The provider is {{home in the office*}}.
Thepatient has been positively identified and has consented to a telephone visit.
The time spent in counseling and coordination of care was 15 minutes.</p><p>
Most of patients medications have been switched to oral solutions per [facility]. Pt switched pharmacies from [facility] to [facility].</p><p>
</p><p>Last weight by [facility] was 09/12 #126.4</p><p>
</p><p>Provider note: Telephone visit due to increased Covid-19 activity in our area. Concern for possible exposure to patient. He can't do telehealth visit because he does not have computer or smart phone.</p><p>Wt 133 lb on 10/15/2020 per pt.</p><p>Reviewed sick surgery note 10/04/[address] Wicho Ortiz. There was progression of disease. Only lymph node biopsies were obtained including aortic nodes positive for adenocarcinoma. Esophagectomy was not completed.
</p><p>Patient states current plan is for additional chemotherapy 2 types IV and a pill. He has a follow-up at [facility] on 10/24/2020 for port placement. States that his younger brother and girlfriend will drive him to [facility]. Offered gas card to help with transport cost, he defers.
Follow-up scheduled 11/06/[address] Baeza at [facility] in [place]. Patient states he is hoping for 2-3 good years. Home health has discontinued their services, it is not clear why home health was d/c.
</p><p>He is taking solid foods but states no steak, no bread. Still eating mostly soup, cereal, soft foods.He continues to do tube feeding several times weekly using 6 containers nutrition 1.5, 250 mL.
</p><p>Question possible cryoablation to esophageal tumor to keep it at bay.
His older brother is now living in his trailer with him.
</p><p>
< /p><p> </p><p>09/13/2020:<br&g t;Pt has been going to [facility] clinic for fluids.</p><p>
</p><p>
</p><p >Had requested shower chair d/t near [place] but insurance would not cover, was going to look at agarwal option through [facility].</p><p>Walker was approved which patient is aware of.</p><p>[facility] reports recent weight</p><p>08/31/20 - 122.6#</p><p>09/12/20 - 126 .40#</p><p>
</p><p>Provider note: Patient feeling better overall. Request continue [facility]. He is doing nutrition 1.5, 250 mL X 6 daily. He is able to eat some soup once totwice daily. Chicken with rice. He dips crackers in the soup. Occasional soft snack food. I have not tried boost yet.
Patient did not review advanced directive and call us with his daughter.I do want aggressive treatment, I do not want to be DNR.
Bowel movement every other day. Using MiraLAX and senna 8.8 mg / 5 mL syrup. 10 mL's by mouth daily.
One brother lives in a second trailer on the [facility]. A second brother will move out of his camper [place] the [place] [facility] [place]. I'm worried I might fall and I want someone in here with me through the winter.</p> Review of Systems ? Comprehensive General Adult ROS Reported By: Patient Constitutional: Constitutional: no fever, no night sweats, no significant weight gain, no significant weight loss, no chills; 09/13/2020: 15 lb wt gain x : Additional 36 pound weight loss x 05/08/2020 . 48 lb wt loss x 12/21/2019 ENMT: Mouth/Throat: sore throat; d ysphagia Cardiovascular: Cardiovascular: no chest brown n, no arm pain on exertion, no palpitations, no known heart murmur, no ankle swelling Respiratory: Respiratory: no cough, no wh eezing, no shortness of breath Gastrointestinal: Gastrointestinal: no abdomin al pain, no vomiting, no diarrhea, not vomiting blood, nausea, GERD; Intermittent nausea relieved with ondansetron Musculoskeletal: Musculoskeletal: arthralgias /joint pain, back pain, neck pain; chronic right mid-thoracic p ain Integumentary: Skin: no rashes Neurologic: Neurologic: numbness, seizur es; last seizure 2014 Psychiatric: Psych: no suicidal thoughts, no mood swings, no agitation, anxiety Hematologic/Lymphatic: Hematologic/Lymphatic no swo llen glands, no bruising Physical Exam ? Notes: <p>Telephone visit, no exam< br></p>
--- OUTSIDE RECORDS SUMMARY | 2021-01-01 09:35 | XMS_ITS | Encounter Summary ---
:1965 Author Care Team Providers Name Role Phone Anmol Loving Primary Care Provider [phone] Kaylee Montaño DO OTHER [phone] Komal Barber MD General Surgeon [phone] Fartun Santiago MD [employer] Engineer [phone] Kofi Anderson MD Neurologist [phone] Sean Pozo [facility] Book Store Associate [phone] Reason for Visit None recorded. Assessment and Plan 1. Candidal balanitis 10/23/2020: Combination fungal and bacterial balanitis. Cover with ketoconazole 2% cream 1 application daily X 14 days. Mupirocin 2% ointment 3 times daily X 7 days. Call if no improvement. ? ketoconazole 2 % topical c ream 2. Cellulitis of penis 10/23/2020: Combination fungal and bacterial balanitis. Cover with ketoconazole 2% cream 1 application daily X 14 days. Mupirocin 2% ointment 3 times daily X 7 days. Call if no improvement. ? mupirocin 2 % topical oint ment 3. Adenocarcinoma of lower esoph annette 10/23/2020: Anticipate port pl acement tomorrow at [facility]. Patient's brother will drive him to [facility]. Encouraged Mr. Barroso to continue feedings through the J-tube in addition to eating to jed ntain weight. Expressed my concern for e mergency vehicle access if he needs ambulance transport. [place] [address] to [place] house could be impassable without 4WD vehicle with high ground clearance this coming winter. Have again encouraged Mr. Barroso to revie w and sign advance care documents. Call us with any question or concern when he needs another home visit. 10/17/2020: Unfortunately there was prog ression of disease on surgery at [facility] 10/04/2020 therefore planned esophagectomy was not completed. Patient is in good spirits considering his diagnosis. Anticipat e chemotherapy port placement on 020 at [facility] and follow-up with Dr. Baeza hematology-oncology at [facility] on 11/06/2020. Advised patient he will need home health services when he restarts chemotherapy. Anticipate repea t home health order from Dr. Tellez. Otherwise we can repeat the order for home health. Have asked to call us with any question or concern. 09/13/2020: Condition stable at this pito e. Weight gain, up to 129.4 pounds is encouraging. Anticipate multiple visits at [facility] tomorrow 09/14/2020. He has CT scan, PET scan, consults with Dr. Daniel velasquez, Wicho Ortiz and also has nutrit ion consult. Directed Mr. Barroso to contact us with any question or concern. 40-minute home visit 4:52 PM?5:32 PM. 08/18/2020: Reviewed treatment to date wi th Mr. Barroso during home visit. We will contact Dr. Baeza, hematology/oncology at [facility] in [place] regarding possible standing order for IV fluids through outpatient t [facility] at [facility] in [place], lab draws at [facility] with results to be reported to Dr. [...] prn. Greater than 50% of today's 40-minute ho me visit counseling and coordination of care. 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 Start referral to hem-onc at [facility]. Will contact hem-onc and ask if patient needs PET/CT before he is seen. Addendum: Case reviewed with [facility] hem-on c. Have ordered PET/CT eyes to thighs at [facility], tentatively scheduled 05/13/2020. Check CBC and CMP. Follow-up in clinic after hem-onc consult. Addendum: Case reviewed with Dr. Barber. Will also refer to thoracic surgery at [facility] 4. Discussion about advance care planning with caregiver 10/23/2020: Anticipate port pl acement tomorrow at [facility]. Patient's brother will drive him to [facility]. Encouraged Mr. Barroso to continue feedings through the J-tube in addition to eating to jed ntain weight. Expressed my concern for e mergency vehicle access if he needs ambulance transport. [place] [address] to his house could be impassable without 4WD vehicle with high ground clearance this coming winter. Have again encourag ed Mr. Barroso to review and sign advance care documents. Call us with any question or concern when he needs another home visit. 09/13/2020: Discussed COLST and advanced directive with Mr. Barroso. He has not spoken with his daughter yet. He does not want to complete forms at today's visit. He defers hospice at this time. I want t o be able to go to the hospital. If I do that's a breech of contract. I want to stick with the [facility]. 08/18/2020: Reviewed treatment to date wi th Mr. Barroso during home visit. We will contact Dr. Baeza, hematology/oncology at [facility] in [place] regarding possible standing order for IV fluids through outpatient t [facility] at [facility] in [place], lab draws at [facility] with results to be reported to Dr. [...] home visit counseling and coordination of care. Discussion Note: None recorded.Patient educational handouts: No [...] Height Weight BMI 5 ft 8 in 129 lbs 5 oz 19.7 kg/m2 Results Lab Results None recorded. Allergies [...] and two pre-malignant, Dr. Evelyn Subramanian MD [facility], [facility], should have repeat colonoscopy in five years 01/29/2015 Removal of Pilonidal Cyst Information no t available Notes: [facility] patient state s he was in [...] 12 months? Functional Status Unknown. Past Encounters 10/23/2020 Candidal Balanitis; Cellulitis of Penis; Adenocarcinoma of Lower Esophagus; Discussion about Advance Care Planning with Caregiver NIDHI Orellana: [address] [place] [phone], Ph. 10/17/2020 Adenocarcinoma of Lower Esophagus; Abnor mal Weight Loss NIDHI Orellana: [address] [place] [phone], Ph. History of Present Illness Note: <p>10/23/2020: I've got sores and scabs on my penis. I don't think it's from sex becauseI haven't been with a woman since 2018.</p><p>Strong odor of cigarettes in [facility]. Pt states his brother smokes. Brother heriberto moved into [facility] for the winter to help care for Mr. Barroso.</p> Review of Systems ? Comprehensive General Adult ROS Reported By: Patient Constitutional: Constitutional: no fever, no night sweats, no significant weight gain, no significant weight loss, no chills; 10/23/2020: Wt stable at 129 lb09/13/2020: 15 lb wt gain x : Addition al 36 pound weight loss x 05/08/2020. 48 lb wt loss x ENMT: Mouth/Throat: sore throat; d ysphagia Cardiovascular: Cardiovascular: no chest brown n, no arm pain on exertion, no palpitations, no known heart murmur, no ankle swelling Respiratory: Respiratory: no cough, no wh eezing, no shortness of breath Gastrointestinal: Gastrointestinal: no abdomin al pain, no vomiting, no diarrhea, not vomiting blood, nausea, GERD; Intermittent nausea relieved with ondansetron Genitourinary: Genitourinary: ; scabs/irrit ation at penis Musculoskeletal: Musculoskeletal: arthralgias /joint pain, back pain, neck pain; chronic right mid-thoracic p ain Integumentary: Skin: no rashes Neurologic: Neurologic: numbness, seizur es; last seizure 2014 Psychiatric: Psych: no suicidal thoughts, no mood swings, no agitation, anxiety Hematologic/Lymphatic: Hematologic/Lymphatic no swo llen glands, no bruising Physical Exam ? Notes: <p>General: Cachectic adult man in no acute distress. Appearance improved x 08/18/2020.</p><p>Neck: No JVD, no lymphadenopathy, no thyromegaly.</p><p>Chest: LC TA. No rales, rhonchi, wheeze. S1-S2. RRR. No murmur.</p><p>Abdomen: Scaph oid. J-tube in place. No signs of infection at J-tube site. Multiple port s ites from recent laparoscopy healing well. Normal bowel sounds. Abdomen soft, nontender. No HSM.</p><p>: normal circumcised male phallus. Erythema, scab s at base of glans penis. No urethrral d/c.No chancre, no vesicular/herpet iform lesions. Testes normal. No mass, no tenderness. No inguinal lymp hadenopathy.</p><p>Lymphatics: No generalized lymphadenopathy</p><p>Psych: Good spirits considering Dx esophageal cancer. Good eye contact. Answers qu estions appropriately.
</p><p>
</p>
[2021-01-01] MEDS: Normal Saline Flush 10 ML SYR IVP (11:07)
[2021-01-01 11:20] LABS: Abs Immature Grans 0.02 10^3/uL (0.0-0.06); Absolute Basophil Count 0.03 10^3/uL (0.0-0.2); Absolute Eosinophil Count 0.18 10^3/uL (0.0-0.7); Absolute Lymphocyte Count 0.59 10^3/uL (1.2-3.4); Absolute Monocyte Count 0.83 10^3/uL (0.1-0.8); Absolute Neutrophil Count 5.14 10^3/uL (1.2-6.7); Basophils % 0.4; Eosinophils % 2.7; HCT 35.9 % (40.0-50.0); HGB 11.7 g/dL (13.5-17.5); Immature Grans % 0.3; Lymphocytes % 8.7; MCH 30.4 pg (27.0-33.0); MCHC 32.6 % (32.0-36.0); MCV 93.2 fL (80-95); MPV 9.9 fL (8.0-11.0); Monocytes % 12.2; Neutrophils % 75.7; Nucleated RBC 0 %; Platelet Count 180 10^3/uL (130-400); RBC 3.85 10^6/uL (4.36-5.78); RDW 16.1 % (11.8-14.1); RDW-SD 54.4 fL; WBC 6.79 10^3/uL (4.4-10.8)
[2021-01-01 11:33] LABS: ALT 30 U/L (16-63); AST 24 U/L (15-37); Albumin 3.3 g/dL (3.4-5.0); Alkaline Phosphatase 129 U/L (46-116); Anion Gap 8.4 mmol/L (3-11); BUN 11 mg/dL (7-18); Bilirubin, Total 0.3 mg/dL (0.2-1.0); CO2 27.6 mmol/L (21.0-32.0); CREATININE 0.6 mg/dL (0.70-1.30); Calcium 8.9 mg/dL (8.5-10.1); Chloride 103 mmol/L (98-107); Glucose 102 mg/dL (74-106); Magnesium 2.1 mg/dL (1.8-2.4); Sodium 139 mmol/L (136-145); Total Protein 7.7 g/dL (6.4-8.2)
[2021-01-01 18:28] LABS: CEA 2.6 ng/mL (See Note)
[2021-01-15] MEDS: Normal Saline Flush 10 ML SYR IVP (09:25)
[2021-01-15 10:35] LABS: Abs Immature Grans 0.02 10^3/uL (0.0-0.06); Absolute Basophil Count 0.02 10^3/uL (0.0-0.2); Absolute Eosinophil Count 0.15 10^3/uL (0.0-0.7); Absolute Lymphocyte Count 0.59 10^3/uL (1.2-3.4); Absolute Monocyte Count 0.97 10^3/uL (0.1-0.8); Absolute Neutrophil Count 4.17 10^3/uL (1.2-6.7); Basophils % 0.3; Eosinophils % 2.5; HCT 35.7 % (40.0-50.0); HGB 11.7 g/dL (13.5-17.5); Immature Grans % 0.3; MCH 30.6 pg (27.0-33.0); MCHC 32.8 % (32.0-36.0); MCV 93.5 fL (80-95); MPV 10.1 fL (8.0-11.0); Monocytes % 16.4; Neutrophils % 70.5; Nucleated RBC 0 %; Platelet Count 143 10^3/uL (130-400); RBC 3.82 10^6/uL (4.36-5.78); RDW 17.6 % (11.8-14.1); RDW-SD 59.5 fL; WBC 5.92 10^3/uL (4.4-10.8)
[2021-01-15 10:50] LABS: ALT 43 U/L (16-63); AST 34 U/L (15-37); Albumin 3.1 g/dL (3.4-5.0); Alkaline Phosphatase 116 U/L (46-116); Anion Gap 5.5 mmol/L (3-11); BUN 8 mg/dL (7-18); Bilirubin, Total 0.3 mg/dL (0.2-1.0); CO2 27.5 mmol/L (21.0-32.0); CREATININE 0.7 mg/dL (0.70-1.30); Calcium 8.7 mg/dL (8.5-10.1); Chloride 105 mmol/L (98-107); Glucose 97 mg/dL (74-106); Potassium 3.9 mmol/L (3.5-5.1); Sodium 138 mmol/L (136-145); Total Protein 7.2 g/dL (6.4-8.2)
[2021-01-15 18:12] LABS: CEA 2.7 ng/mL (See Note)
== END 2021-01-28 23:59 | disposition home or self-care (01) ==
LOC: INF 01:24
PROVIDERS: PCP Family Medicine; Visit Provider Internal Medicine Medical Oncology
DX: C15.9 Malignant neoplasm of esophagus, unspecified (principal); Z45.2 Encounter for adjustment and management of vascular access device
CPT/HCPCS: 36591; 80053; 82378; 83735; 85025

== ENCOUNTER 2021-02-20 10:30 | Outpatient (RCR) | payer MEDICAID, SELFPAY ==
[2021-01-29] MEDS: Normal Saline Flush 10 ML SYR IVP (09:54)
[2021-01-29 10:09] LABS: Abs Immature Grans 0.02 10^3/uL (0.0-0.06); Absolute Basophil Count 0.03 10^3/uL (0.0-0.2); Absolute Eosinophil Count 0.12 10^3/uL (0.0-0.7); Absolute Lymphocyte Count 0.49 10^3/uL (1.2-3.4); Absolute Neutrophil Count 3.28 10^3/uL (1.2-6.7); Basophils % 0.6; Eosinophils % 2.5; HCT 36.3 % (40.0-50.0); HGB 11.9 g/dL (13.5-17.5); Immature Grans % 0.4; Lymphocytes % 10.3; MCH 30.4 pg (27.0-33.0); MCHC 32.8 % (32.0-36.0); MCV 92.8 fL (80-95); MPV 10.5 fL (8.0-11.0); Monocytes % 16.9; Neutrophils % 69.3; Nucleated RBC 0 %; RBC 3.91 10^6/uL (4.36-5.78); RDW 18.5 % (11.8-14.1); RDW-SD 63.2 fL; WBC 4.74 10^3/uL (4.4-10.8)
[2021-01-29 10:23] LABS: ALT 36 U/L (16-63); AST 30 U/L (15-37); Albumin 3.2 g/dL (3.4-5.0); Alkaline Phosphatase 133 U/L (46-116); Anion Gap 8.8 mmol/L (3-11); BUN 9 mg/dL (7-18); Bilirubin, Total 0.5 mg/dL (0.2-1.0); CO2 26.2 mmol/L (21.0-32.0); CREATININE 0.7 mg/dL (0.70-1.30); Calcium 8.9 mg/dL (8.5-10.1); Chloride 104 mmol/L (98-107); Glucose 83 mg/dL (74-106); Magnesium 2.1 mg/dL (1.8-2.4); Potassium 4.1 mmol/L (3.5-5.1); Sodium 139 mmol/L (136-145); Total Protein 7.5 g/dL (6.4-8.2)
[2021-01-29 10:39] LABS: Diff Comment Diff Reviewed; RBC Morphology Normal
[2021-01-29 13:32] LABS: Bilirubin Negative (Negative); Blood Negative (Negative); Clarity Clear (Clear); Glucose Negative (Negative); Ketones Negative (Negative); Leukocyte Esterase Negative (Negative); Nitrite Negative (Negative); Specific Gravity 1.025 (1.005-1.025); Urobilinogen 0.2 EU/dL (Up TO 0.2); pH 5.5 (5-8)
[2021-01-29 17:51] LABS: CEA 2.7 ng/mL (See Note)
[2021-02-20] MEDS: Normal Saline Flush 10 ML SYR IVP (10:54)
== END 2021-02-28 23:59 | disposition home or self-care (01) ==
LOC: INF 10:30
PROVIDERS: Nurse Practitioner Adult Health; PCP Family Medicine; Visit Provider Internal Medicine Medical Oncology
DX: C15.9 Malignant neoplasm of esophagus, unspecified (principal); Z45.2 Encounter for adjustment and management of vascular access device; R30.0 Dysuria
CPT/HCPCS: 36591; 80053; 96523; 81003; 82378; 83735; 85025

== ENCOUNTER 2021-03-19 02:35 | Outpatient (RCR) | payer MEDICAID, SELFPAY ==
[2021-03-05] MEDS: Normal Saline Flush 10 ML SYR IVP (07:41)
[2021-03-05 07:49] LABS: Abs Immature Grans 0.03 10^3/uL (0.0-0.06); Absolute Basophil Count 0.03 10^3/uL (0.0-0.2); Absolute Eosinophil Count 0.13 10^3/uL (0.0-0.7); Absolute Lymphocyte Count 0.61 10^3/uL (1.2-3.4); Absolute Monocyte Count 1.02 10^3/uL (0.1-0.8); Absolute Neutrophil Count 4.97 10^3/uL (1.2-6.7); Basophils % 0.4; Eosinophils % 1.9; HCT 36.7 % (40.0-50.0); HGB 12.3 g/dL (13.5-17.5); Immature Grans % 0.4; MCH 31.9 pg (27.0-33.0); MCHC 33.5 % (32.0-36.0); MCV 95.3 fL (80-95); MPV 10.1 fL (8.0-11.0); Neutrophils % 73.3; Nucleated RBC 0 %; Platelet Count 160 10^3/uL (130-400); RBC 3.85 10^6/uL (4.36-5.78); RDW 19.2 % (11.8-14.1); RDW-SD 66.3 fL; WBC 6.79 10^3/uL (4.4-10.8)
[2021-03-05 08:02] LABS: ALT 43 U/L (16-63); AST 36 U/L (15-37); Alkaline Phosphatase 132 U/L (46-116); Anion Gap 8.7 mmol/L (3-11); BUN 8 mg/dL (7-18); Bilirubin, Total 0.4 mg/dL (0.2-1.0); CO2 28.3 mmol/L (21.0-32.0); CREATININE 0.8 mg/dL (0.70-1.30); Calcium 9.1 mg/dL (8.5-10.1); Chloride 105 mmol/L (98-107); Glucose 116 mg/dL (74-106); Potassium 3.7 mmol/L (3.5-5.1); Sodium 142 mmol/L (136-145); Total Protein 7.4 g/dL (6.4-8.2)
[2021-03-19] MEDS: Normal Saline Flush 10 ML SYR IVP (10:29)
[2021-03-19 10:36] LABS: Abs Immature Grans 0.03 10^3/uL (0.0-0.06); Absolute Basophil Count 0.04 10^3/uL (0.0-0.2); Absolute Eosinophil Count 0.22 10^3/uL (0.0-0.7); Absolute Lymphocyte Count 0.61 10^3/uL (1.2-3.4); Absolute Neutrophil Count 4.57 10^3/uL (1.2-6.7); Basophils % 0.6; Eosinophils % 3.3; HCT 34.8 % (40.0-50.0); HGB 11.7 g/dL (13.5-17.5); Immature Grans % 0.5; Lymphocytes % 9.3; MCH 32.2 pg (27.0-33.0); MCHC 33.6 % (32.0-36.0); MCV 95.9 fL (80-95); MPV 9.5 fL (8.0-11.0); Monocytes % 16.7; Neutrophils % 69.6; Nucleated RBC 0 %; Platelet Count 142 10^3/uL (130-400); RBC 3.63 10^6/uL (4.36-5.78); RDW 18.3 % (11.8-14.1); RDW-SD 64.4 fL; WBC 6.57 10^3/uL (4.4-10.8)
[2021-03-19 10:52] LABS: ALT 32 U/L (16-63); AST 26 U/L (15-37); Albumin 3.2 g/dL (3.4-5.0); Alkaline Phosphatase 127 U/L (46-116); Anion Gap 7.4 mmol/L (3-11); BUN 12 mg/dL (7-18); Bilirubin, Total 0.3 mg/dL (0.2-1.0); CO2 28.6 mmol/L (21.0-32.0); CREATININE 0.7 mg/dL (0.70-1.30); Calcium 8.8 mg/dL (8.5-10.1); Chloride 105 mmol/L (98-107); Glucose 98 mg/dL (74-106); Magnesium 1.9 mg/dL (1.8-2.4); Sodium 141 mmol/L (136-145); Total Protein 7.4 g/dL (6.4-8.2)
== END 2021-03-30 23:59 | disposition home or self-care (01) ==
LOC: INF 02:35
PROVIDERS: PCP Family Medicine; Visit Provider Internal Medicine Medical Oncology
DX: C15.9 Malignant neoplasm of esophagus, unspecified (principal); Z45.2 Encounter for adjustment and management of vascular access device
CPT/HCPCS: 36591; 80053; 82378; 83735; 85025

== ENCOUNTER 2021-04-16 02:34 | Outpatient (RCR) | payer MEDICAID, SELFPAY ==
[2021-04-02] MEDS: Normal Saline Flush 10 ML SYR IVP (07:32)
[2021-04-02 07:39] LABS: Abs Immature Grans 0.02 10^3/uL (0.0-0.06); Absolute Basophil Count 0.03 10^3/uL (0.0-0.2); Absolute Eosinophil Count 0.15 10^3/uL (0.0-0.7); Absolute Lymphocyte Count 0.57 10^3/uL (1.2-3.4); Absolute Monocyte Count 0.99 10^3/uL (0.1-0.8); Absolute Neutrophil Count 3.56 10^3/uL (1.2-6.7); Basophils % 0.6; Eosinophils % 2.8; HCT 34.4 % (40.0-50.0); HGB 11.6 g/dL (13.5-17.5); Immature Grans % 0.4; Lymphocytes % 10.7; MCH 33.3 pg (27.0-33.0); MCHC 33.7 % (32.0-36.0); MCV 98.9 fL (80-95); Monocytes % 18.6; Neutrophils % 66.9; Nucleated RBC 0 %; Platelet Count 112 10^3/uL (130-400); RBC 3.48 10^6/uL (4.36-5.78); RDW 18.5 % (11.8-14.1); WBC 5.32 10^3/uL (4.4-10.8)
[2021-04-02 07:52] LABS: ALT 31 U/L (16-63); AST 30 U/L (15-37); Alkaline Phosphatase 119 U/L (46-116); BUN 8 mg/dL (7-18); Bilirubin, Total 0.3 mg/dL (0.2-1.0); CREATININE 0.7 mg/dL (0.70-1.30); Calcium 8.5 mg/dL (8.5-10.1); Chloride 108 mmol/L (98-107); Glucose 102 mg/dL (74-106); Magnesium 1.8 mg/dL (1.8-2.4); Potassium 3.8 mmol/L (3.5-5.1); Sodium 144 mmol/L (136-145); Total Protein 6.9 g/dL (6.4-8.2)
[2021-04-02 17:35] LABS: CEA 2.2 ng/mL (See Note)
[2021-04-16] MEDS: Normal Saline Flush 10 ML SYR IVP (11:28)
[2021-04-16 11:43] LABS: Abs Immature Grans 0.03 10^3/uL (0.0-0.06); Absolute Basophil Count 0.04 10^3/uL (0.0-0.2); Absolute Eosinophil Count 0.19 10^3/uL (0.0-0.7); Absolute Lymphocyte Count 0.67 10^3/uL (1.2-3.4); Absolute Monocyte Count 1.19 10^3/uL (0.1-0.8); Absolute Neutrophil Count 4.66 10^3/uL (1.2-6.7); Basophils % 0.6; Eosinophils % 2.8; HCT 33.9 % (40.0-50.0); HGB 11.4 g/dL (13.5-17.5); Immature Grans % 0.4; Lymphocytes % 9.9; MCH 33.1 pg (27.0-33.0); MCHC 33.6 % (32.0-36.0); MCV 98.5 fL (80-95); MPV 11.1 fL (8.0-11.0); Monocytes % 17.6; Neutrophils % 68.7; Nucleated RBC 0 %; Platelet Count 127 10^3/uL (130-400); RBC 3.44 10^6/uL (4.36-5.78); RDW 18.3 % (11.8-14.1); RDW-SD 65.5 fL; WBC 6.78 10^3/uL (4.4-10.8)
[2021-04-16 12:04] LABS: ALT 45 U/L (16-63); AST 44 U/L (15-37); Albumin 3.1 g/dL (3.4-5.0); Alkaline Phosphatase 162 U/L (46-116); Anion Gap 6.7 mmol/L (3-11); BUN 12 mg/dL (7-18); Bilirubin, Total 0.4 mg/dL (0.2-1.0); CO2 28.3 mmol/L (21.0-32.0); CREATININE 0.7 mg/dL (0.70-1.30); Calcium 8.7 mg/dL (8.5-10.1); Chloride 104 mmol/L (98-107); Glucose 94 mg/dL (74-106); Potassium 4.1 mmol/L (3.5-5.1); Sodium 139 mmol/L (136-145); Total Protein 7.1 g/dL (6.4-8.2)
[2021-04-16 21:54] LABS: CEA 2.5 ng/mL (See Note)
== END 2021-04-30 23:59 | disposition home or self-care (01) ==
LOC: INF 02:34
PROVIDERS: PCP Family Medicine; Visit Provider Internal Medicine Medical Oncology
DX: C15.9 Malignant neoplasm of esophagus, unspecified (principal); Z45.2 Encounter for adjustment and management of vascular access device
CPT/HCPCS: 36591; 80053; 82378; 83735; 85025

== ENCOUNTER 2021-05-28 02:53 | Outpatient (RCR) | payer MEDICAID, SELFPAY ==
[2021-05-02] MEDS: Normal Saline Flush 10 ML SYR IVP (09:34)
[2021-05-02 09:44] LABS: Abs Immature Grans 0.03 10^3/uL (0.0-0.06); Absolute Basophil Count 0.03 10^3/uL (0.0-0.2); Absolute Eosinophil Count 0.13 10^3/uL (0.0-0.7); Absolute Lymphocyte Count 0.53 10^3/uL (1.2-3.4); Absolute Neutrophil Count 3.53 10^3/uL (1.2-6.7); Basophils % 0.6; Eosinophils % 2.6; HCT 34.9 % (40.0-50.0); HGB 11.9 g/dL (13.5-17.5); Immature Grans % 0.6; Lymphocytes % 10.5; MCH 34.2 pg (27.0-33.0); MCHC 34.1 % (32.0-36.0); MCV 100.3 fL (80-95); MPV 10.7 fL (8.0-11.0); Monocytes % 15.8; Neutrophils % 69.9; Nucleated RBC 0 %; Platelet Count 139 10^3/uL (130-400); RBC 3.48 10^6/uL (4.36-5.78); RDW 17.6 % (11.8-14.1); RDW-SD 65.4 fL; WBC 5.05 10^3/uL (4.4-10.8)
[2021-05-02 09:51] LABS: ALT 39 U/L (16-63); AST 32 U/L (15-37); Albumin 3.1 g/dL (3.4-5.0); Alkaline Phosphatase 155 U/L (46-116); Anion Gap 6.4 mmol/L (3-11); BUN 11 mg/dL (7-18); Bilirubin, Total 0.4 mg/dL (0.2-1.0); CO2 28.6 mmol/L (21.0-32.0); CREATININE 0.8 mg/dL (0.70-1.30); Calcium 8.9 mg/dL (8.5-10.1); Chloride 106 mmol/L (98-107); Glucose 129 mg/dL (74-106); Magnesium 2.2 mg/dL (1.8-2.4); Sodium 141 mmol/L (136-145); Total Protein 7.3 g/dL (6.4-8.2)
[2021-05-02 17:32] LABS: CEA 2.5 ng/mL (See Note)
[2021-05-14] MEDS: Normal Saline Flush 10 ML SYR IVP (08:19)
[2021-05-14 08:45] LABS: Abs Immature Grans 0.03 10^3/uL (0.0-0.06); Absolute Basophil Count 0.04 10^3/uL (0.0-0.2); Absolute Eosinophil Count 0.18 10^3/uL (0.0-0.7); Absolute Lymphocyte Count 0.75 10^3/uL (1.2-3.4); Absolute Monocyte Count 1.14 10^3/uL (0.1-0.8); Absolute Neutrophil Count 3.91 10^3/uL (1.2-6.7); Basophils % 0.7; HCT 35.8 % (40.0-50.0); HGB 11.7 g/dL (13.5-17.5); Immature Grans % 0.5; Lymphocytes % 12.4; MCH 32.9 pg (27.0-33.0); MCHC 32.7 % (32.0-36.0); MCV 100.6 fL (80-95); MPV 10.6 fL (8.0-11.0); Monocytes % 18.8; Neutrophils % 64.6; Nucleated RBC 0 %; Platelet Count 149 10^3/uL (130-400); RBC 3.56 10^6/uL (4.36-5.78); RDW 17.1 % (11.8-14.1); RDW-SD 63.4 fL; WBC 6.05 10^3/uL (4.4-10.8)
[2021-05-14 08:49] LABS: ALT 40 U/L (16-63); AST 37 U/L (15-37); Albumin 3.2 g/dL (3.4-5.0); Alkaline Phosphatase 135 U/L (46-116); Anion Gap 6.9 mmol/L (3-11); BUN 13 mg/dL (7-18); Bilirubin, Total 0.5 mg/dL (0.2-1.0); CO2 28.1 mmol/L (21.0-32.0); CREATININE 0.7 mg/dL (0.70-1.30); Calcium 8.9 mg/dL (8.5-10.1); Chloride 106 mmol/L (98-107); Glucose 76 mg/dL (74-106); Magnesium 2.1 mg/dL (1.8-2.4); Potassium 3.8 mmol/L (3.5-5.1); Sodium 141 mmol/L (136-145); Total Protein 7.6 g/dL (6.4-8.2)
[2021-05-14 16:40] LABS: CEA 2.4 ng/mL (See Note)
[2021-05-28 08:19] LABS: Abs Immature Grans 0.03 10^3/uL (0.0-0.06); Absolute Basophil Count 0.04 10^3/uL (0.0-0.2); Absolute Eosinophil Count 0.18 10^3/uL (0.0-0.7); Absolute Lymphocyte Count 0.69 10^3/uL (1.2-3.4); Absolute Monocyte Count 0.81 10^3/uL (0.1-0.8); Absolute Neutrophil Count 3.14 10^3/uL (1.2-6.7); Basophils % 0.8; Eosinophils % 3.7; HCT 37.7 % (40.0-50.0); HGB 12.3 g/dL (13.5-17.5); Immature Grans % 0.6; Lymphocytes % 14.1; MCH 33.4 pg (27.0-33.0); MCHC 32.6 % (32.0-36.0); MCV 102.4 fL (80-95); MPV 10.7 fL (8.0-11.0); Monocytes % 16.6; Neutrophils % 64.2; Nucleated RBC 0 %; Platelet Count 123 10^3/uL (130-400); RBC 3.68 10^6/uL (4.36-5.78); RDW 16.6 % (11.8-14.1); RDW-SD 62.9 fL; WBC 4.89 10^3/uL (4.4-10.8)
[2021-05-28] MEDS: Normal Saline Flush 10 ML SYR IVP (08:38)
[2021-05-28 08:41] LABS: ALT 41 U/L (16-63); AST 36 U/L (15-37); Albumin 3.1 g/dL (3.4-5.0); Alkaline Phosphatase 122 U/L (46-116); Anion Gap 9.1 mmol/L (3-11); BUN 13 mg/dL (7-18); Bilirubin, Total 0.5 mg/dL (0.2-1.0); CO2 25.9 mmol/L (21.0-32.0); CREATININE 0.8 mg/dL (0.70-1.30); Calcium 9.1 mg/dL (8.5-10.1); Chloride 108 mmol/L (98-107); Glucose 132 mg/dL (74-106); Potassium 3.8 mmol/L (3.5-5.1); Sodium 143 mmol/L (136-145); Total Protein 7.6 g/dL (6.4-8.2)
[2021-05-28 17:06] LABS: CEA 2.3 ng/mL (See Note)
== END 2021-05-30 23:59 | disposition home or self-care (01) ==
LOC: INF 02:53
PROVIDERS: PCP Family Medicine; Visit Provider Internal Medicine Medical Oncology
DX: C15.9 Malignant neoplasm of esophagus, unspecified (principal); Z45.2 Encounter for adjustment and management of vascular access device
CPT/HCPCS: 36591; 80053; 82378; 83735; 85025

== ENCOUNTER 2021-06-18 02:23 | Outpatient (RCR) | payer MEDICAID, SELFPAY ==
[2021-06-18 08:51] LABS: Abs Immature Grans 0.04 10^3/uL (0.0-0.06); Absolute Basophil Count 0.04 10^3/uL (0.0-0.2); Absolute Eosinophil Count 0.13 10^3/uL (0.0-0.7); Absolute Lymphocyte Count 0.66 10^3/uL (1.2-3.4); Absolute Monocyte Count 0.96 10^3/uL (0.1-0.8); Absolute Neutrophil Count 3.63 10^3/uL (1.2-6.7); Basophils % 0.7; Eosinophils % 2.4; HCT 38.9 % (40.0-50.0); HGB 13.1 g/dL (13.5-17.5); Immature Grans % 0.7; Lymphocytes % 12.1; MCH 33.8 pg (27.0-33.0); MCHC 33.7 % (32.0-36.0); MCV 100.3 fL (80-95); MPV 10.3 fL (8.0-11.0); Monocytes % 17.6; Neutrophils % 66.5; Nucleated RBC 0 %; Platelet Count 201 10^3/uL (130-400); RBC 3.88 10^6/uL (4.36-5.78); RDW 15.6 % (11.8-14.1); RDW-SD 57.2 fL; WBC 5.46 10^3/uL (4.4-10.8)
[2021-06-18 09:07] LABS: ALT 46 U/L (16-63); AST 39 U/L (15-37); Albumin 3.2 g/dL (3.4-5.0); Alkaline Phosphatase 151 U/L (46-116); Anion Gap 7.6 mmol/L (3-11); BUN 13 mg/dL (7-18); Bilirubin, Total 0.4 mg/dL (0.2-1.0); CO2 27.4 mmol/L (21.0-32.0); CREATININE 0.7 mg/dL (0.70-1.30); Calcium 9.1 mg/dL (8.5-10.1); Chloride 105 mmol/L (98-107); Glucose 100 mg/dL (74-106); Magnesium 2.1 mg/dL (1.8-2.4); Potassium 3.8 mmol/L (3.5-5.1); Sodium 140 mmol/L (136-145); Total Protein 7.8 g/dL (6.4-8.2)
[2021-06-18] MEDS: Normal Saline Flush 10 ML SYR IVP (09:25)
[2021-06-18 17:18] LABS: CEA 2.4 ng/mL (See Note)
== END 2021-06-30 23:59 | disposition home or self-care (01) ==
LOC: INF 02:23
PROVIDERS: PCP Family Medicine; Visit Provider Internal Medicine Medical Oncology
DX: C15.9 Malignant neoplasm of esophagus, unspecified (principal); Z45.2 Encounter for adjustment and management of vascular access device
CPT/HCPCS: 36591; 80053; 82378; 83735; 85025

== ENCOUNTER 2021-07-30 02:43 | Outpatient (RCR) | payer MEDICAID, SELFPAY ==
[2021-07-04 08:48] LABS: Abs Immature Grans 0.02 10^3/uL (0.0-0.06); Absolute Basophil Count 0.03 10^3/uL (0.0-0.2); Absolute Eosinophil Count 0.26 10^3/uL (0.0-0.7); Absolute Lymphocyte Count 0.64 10^3/uL (1.2-3.4); Basophils % 0.6; Eosinophils % 5.3; HGB 12.6 g/dL (13.5-17.5); Immature Grans % 0.4; Lymphocytes % 12.9; MCH 34.2 pg (27.0-33.0); MCHC 34.1 % (32.0-36.0); MCV 100.5 fL (80-95); MPV 9.9 fL (8.0-11.0); Monocytes % 18.2; Neutrophils % 62.6; Nucleated RBC 0 %; Platelet Count 149 10^3/uL (130-400); RBC 3.68 10^6/uL (4.36-5.78); RDW 15.5 % (11.8-14.1); RDW-SD 57.6 fL; WBC 4.95 10^3/uL (4.4-10.8)
[2021-07-04 09:02] LABS: ALT 36 U/L (16-63); AST 29 U/L (15-37); Albumin 3.2 g/dL (3.4-5.0); Alkaline Phosphatase 139 U/L (46-116); Anion Gap 4.4 mmol/L (3-11); BUN 12 mg/dL (7-18); Bilirubin, Total 0.3 mg/dL (0.2-1.0); CO2 29.6 mmol/L (21.0-32.0); CREATININE 0.7 mg/dL (0.70-1.30); Chloride 107 mmol/L (98-107); Glucose 82 mg/dL (74-106); Magnesium 2.1 mg/dL (1.8-2.4); Sodium 141 mmol/L (136-145); Total Protein 7.5 g/dL (6.4-8.2)
[2021-07-04] MEDS: Normal Saline Flush 10 ML SYR IVP (09:16)
[2021-07-30] MEDS: Normal Saline Flush 10 ML SYR IVP (10:32)
[2021-07-30 10:51] LABS: Abs Immature Grans 0.04 10^3/uL (0.0-0.06); Absolute Basophil Count 0.03 10^3/uL (0.0-0.2); Absolute Eosinophil Count 0.22 10^3/uL (0.0-0.7); Absolute Lymphocyte Count 0.73 10^3/uL (1.2-3.4); Absolute Monocyte Count 0.87 10^3/uL (0.1-0.8); Absolute Neutrophil Count 4.45 10^3/uL (1.2-6.7); Basophils % 0.5; Eosinophils % 3.5; HGB 12.9 g/dL (13.5-17.5); Immature Grans % 0.6; Lymphocytes % 11.5; MCH 33.2 pg (27.0-33.0); MCHC 33.1 % (32.0-36.0); MCV 100.5 fL (80-95); MPV 9.7 fL (8.0-11.0); Monocytes % 13.7; Neutrophils % 70.2; Nucleated RBC 0 %; Platelet Count 172 10^3/uL (130-400); RBC 3.88 10^6/uL (4.36-5.78); RDW 15.7 % (11.8-14.1); RDW-SD 58.1 fL; WBC 6.34 10^3/uL (4.4-10.8)
[2021-07-30 11:18] LABS: Magnesium 2.1 mg/dL (1.8-2.4)
[2021-07-30 11:22] LABS: ALT 34 U/L (16-63); AST 31 U/L (15-37); Albumin 3.3 g/dL (3.4-5.0); Alkaline Phosphatase 132 U/L (46-116); Anion Gap 6.4 mmol/L (3-11); BUN 10 mg/dL (7-18); Bilirubin, Total 0.4 mg/dL (0.2-1.0); CO2 27.6 mmol/L (21.0-32.0); CREATININE 0.8 mg/dL (0.70-1.30); Calcium 9.3 mg/dL (8.5-10.1); Chloride 107 mmol/L (98-107); Glucose 113 mg/dL (74-106); Sodium 141 mmol/L (136-145); Total Protein 7.8 g/dL (6.4-8.2)
== END 2021-07-31 23:59 | disposition home or self-care (01) ==
LOC: INF 02:43
PROVIDERS: PCP Family Medicine; Visit Provider Internal Medicine Medical Oncology
DX: C15.5 Malignant neoplasm of lower third of esophagus (principal); Z45.2 Encounter for adjustment and management of vascular access device
CPT/HCPCS: 36591; 80053; 82378; 83735; 85025

== ENCOUNTER 2021-08-22 09:45 | Outpatient (RCR) | payer MEDICAID, SELFPAY ==
[2021-08-22] MEDS: Normal Saline Flush 10 ML SYR IVP (10:12)
[2021-08-22 10:34] LABS: Abs Immature Grans 0.04 10^3/uL (0.0-0.06); Absolute Basophil Count 0.03 10^3/uL (0.0-0.2); Absolute Monocyte Count 0.82 10^3/uL (0.1-0.8); Absolute Neutrophil Count 4.51 10^3/uL (1.2-6.7); Basophils % 0.5; Eosinophils % 3.2; HCT 36.9 % (40.0-50.0); HGB 12.4 g/dL (13.5-17.5); Immature Grans % 0.6; Lymphocytes % 11.1; MCH 33.6 pg (27.0-33.0); MCHC 33.6 % (32.0-36.0); MPV 9.4 fL (8.0-11.0); Neutrophils % 71.6; Nucleated RBC 0 %; Platelet Count 186 10^3/uL (130-400); RBC 3.69 10^6/uL (4.36-5.78); RDW 15.2 % (11.8-14.1); RDW-SD 55.5 fL
[2021-08-22 10:52] LABS: ALT 32 U/L (16-63); AST 22 U/L (15-37); Albumin 3.3 g/dL (3.4-5.0); Alkaline Phosphatase 123 U/L (46-116); Anion Gap 4.8 mmol/L (3-11); BUN 12 mg/dL (7-18); Bilirubin, Total 0.3 mg/dL (0.2-1.0); CO2 30.2 mmol/L (21.0-32.0); CREATININE 0.8 mg/dL (0.70-1.30); Calcium 8.9 mg/dL (8.5-10.1); Chloride 106 mmol/L (98-107); Glucose 71 mg/dL (74-106); Magnesium 2.2 mg/dL (1.8-2.4); Potassium 4.1 mmol/L (3.5-5.1); Sodium 141 mmol/L (136-145); Total Protein 7.4 g/dL (6.4-8.2)
== END 2021-08-30 23:59 | disposition home or self-care (01) ==
LOC: INF 09:45
PROVIDERS: PCP Family Medicine; Visit Provider Internal Medicine Medical Oncology
DX: C15.9 Malignant neoplasm of esophagus, unspecified (principal); Z45.2 Encounter for adjustment and management of vascular access device
CPT/HCPCS: 36591; 80053; 82378; 83735; 85025

== ENCOUNTER 2021-09-10 13:03 | Outpatient (RCR) | payer MEDICAID, SELFPAY ==
[2021-09-10] MEDS: Normal Saline Flush 10 ML SYR IVP (13:23)
[2021-09-10 13:32] LABS: Abs Immature Grans 0.03 10^3/uL (0.0-0.06); Absolute Basophil Count 0.03 10^3/uL (0.0-0.2); Absolute Eosinophil Count 0.21 10^3/uL (0.0-0.7); Absolute Lymphocyte Count 0.81 10^3/uL (1.2-3.4); Absolute Monocyte Count 0.94 10^3/uL (0.1-0.8); Absolute Neutrophil Count 4.38 10^3/uL (1.2-6.7); Basophils % 0.5; Eosinophils % 3.3; HGB 13.1 g/dL (13.5-17.5); Immature Grans % 0.5; Lymphocytes % 12.7; MCH 33.6 pg (27.0-33.0); MCHC 33.6 % (32.0-36.0); MPV 9.6 fL (8.0-11.0); Monocytes % 14.7; Neutrophils % 68.3; Nucleated RBC 0 %; Platelet Count 179 10^3/uL (130-400); RDW 15.5 % (11.8-14.1); RDW-SD 56.9 fL
[2021-09-10 13:50] LABS: ALT 29 U/L (16-63); AST 23 U/L (15-37); Albumin 3.6 g/dL (3.4-5.0); Alkaline Phosphatase 88 U/L (46-116); Anion Gap 6.2 mmol/L (3-11); BUN 12 mg/dL (7-18); Bilirubin, Total 0.4 mg/dL (0.2-1.0); CO2 28.8 mmol/L (21.0-32.0); CREATININE 0.9 mg/dL (0.70-1.30); Calcium 9.1 mg/dL (8.5-10.1); Chloride 105 mmol/L (98-107); Glucose 81 mg/dL (74-106); Magnesium 2.2 mg/dL (1.8-2.4); Potassium 4.1 mmol/L (3.5-5.1); Sodium 140 mmol/L (136-145); Total Protein 7.6 g/dL (6.4-8.2)
[2021-09-11 14:22] LABS: CEA 2.3 ng/mL (See Note)
== END 2021-09-30 23:59 | disposition home or self-care (01) ==
LOC: INF 13:03
PROVIDERS: PCP Family Medicine; Visit Provider Internal Medicine Medical Oncology
DX: C15.9 Malignant neoplasm of esophagus, unspecified (principal); Z45.2 Encounter for adjustment and management of vascular access device
CPT/HCPCS: 36591; 80053; 82378; 83735; 85025

== ENCOUNTER 2021-10-22 01:37 | Outpatient (RCR) | payer MEDICAID, SELFPAY ==
[2021-10-01] MEDS: Normal Saline Flush 10 ML SYR IVP (12:29)
[2021-10-01 12:33] LABS: Abs Immature Grans 0.04 10^3/uL (0.0-0.06); Absolute Basophil Count 0.04 10^3/uL (0.0-0.2); Absolute Eosinophil Count 0.16 10^3/uL (0.0-0.7); Absolute Lymphocyte Count 0.73 10^3/uL (1.2-3.4); Absolute Monocyte Count 0.96 10^3/uL (0.1-0.8); Absolute Neutrophil Count 4.56 10^3/uL (1.2-6.7); Basophils % 0.6; Eosinophils % 2.5; HCT 39.4 % (40.0-50.0); HGB 13.2 g/dL (13.5-17.5); Immature Grans % 0.6; Lymphocytes % 11.2; MCH 33.2 pg (27.0-33.0); MCHC 33.5 % (32.0-36.0); MCV 99.2 fL (80-95); MPV 9.5 fL (8.0-11.0); Monocytes % 14.8; Neutrophils % 70.3; Nucleated RBC 0 %; Platelet Count 198 10^3/uL (130-400); RBC 3.97 10^6/uL (4.36-5.78); RDW-SD 54.8 fL; WBC 6.49 10^3/uL (4.4-10.8)
[2021-10-01 12:46] LABS: ALT 27 U/L (16-63); AST 22 U/L (15-37); Albumin 3.6 g/dL (3.4-5.0); Alkaline Phosphatase 101 U/L (46-116); BUN 9 mg/dL (7-18); Bilirubin, Total 0.4 mg/dL (0.2-1.0); CREATININE 0.8 mg/dL (0.70-1.30); Calcium 9.2 mg/dL (8.5-10.1); Chloride 104 mmol/L (98-107); Glucose 87 mg/dL (74-106); Magnesium 2.1 mg/dL (1.8-2.4); Potassium 3.8 mmol/L (3.5-5.1); Sodium 140 mmol/L (136-145); Total Protein 7.9 g/dL (6.4-8.2)
[2021-10-22] MEDS: Normal Saline Flush 10 ML SYR IVP (12:29)
[2021-10-22 12:40] LABS: Abs Immature Grans 0.03 10^3/uL (0.0-0.06); Absolute Basophil Count 0.03 10^3/uL (0.0-0.2); Absolute Eosinophil Count 0.23 10^3/uL (0.0-0.7); Absolute Lymphocyte Count 0.81 10^3/uL (1.2-3.4); Absolute Monocyte Count 0.81 10^3/uL (0.1-0.8); Absolute Neutrophil Count 4.34 10^3/uL (1.2-6.7); Basophils % 0.5; Eosinophils % 3.7; HCT 39.1 % (40.0-50.0); HGB 13.2 g/dL (13.5-17.5); Immature Grans % 0.5; MCH 33.6 pg (27.0-33.0); MCHC 33.8 % (32.0-36.0); MCV 99.5 fL (80-95); MPV 9.4 fL (8.0-11.0); Neutrophils % 69.3; Nucleated RBC 0 %; Platelet Count 179 10^3/uL (130-400); RBC 3.93 10^6/uL (4.36-5.78); RDW 14.8 % (11.8-14.1); RDW-SD 54.4 fL; WBC 6.25 10^3/uL (4.4-10.8)
[2021-10-22 13:01] LABS: ALT 32 U/L (16-63); AST 24 U/L (15-37); Albumin 3.4 g/dL (3.4-5.0); Alkaline Phosphatase 100 U/L (46-116); Anion Gap 7.8 mmol/L (3-11); BUN 11 mg/dL (7-18); Bilirubin, Total 0.3 mg/dL (0.2-1.0); CO2 29.2 mmol/L (21.0-32.0); CREATININE 0.8 mg/dL (0.70-1.30); Calcium 8.9 mg/dL (8.5-10.1); Chloride 105 mmol/L (98-107); Glucose 72 mg/dL (74-106); Magnesium 2.1 mg/dL (1.8-2.4); Potassium 3.9 mmol/L (3.5-5.1); Sodium 142 mmol/L (136-145); Total Protein 7.5 g/dL (6.4-8.2)
== END 2021-10-30 23:59 | disposition home or self-care (01) ==
LOC: INF 01:37
PROVIDERS: PCP Family Medicine; Visit Provider Internal Medicine Medical Oncology
DX: C15.9 Malignant neoplasm of esophagus, unspecified (principal); Z45.2 Encounter for adjustment and management of vascular access device
CPT/HCPCS: 36591; 80053; 82378; 83735; 85025

== ENCOUNTER 2021-12-03 01:13 | Outpatient (RCR) | payer MEDICAID, SELFPAY ==
[2021-12-03] MEDS: Normal Saline Flush 10 ML SYR IVP (13:20)
[2021-12-03 13:47] LABS: Abs Immature Grans 0.05 10^3/uL (0.0-0.06); Absolute Basophil Count 0.04 10^3/uL (0.0-0.2); Absolute Eosinophil Count 0.28 10^3/uL (0.0-0.7); Absolute Lymphocyte Count 0.92 10^3/uL (1.2-3.4); Absolute Monocyte Count 0.84 10^3/uL (0.1-0.8); Absolute Neutrophil Count 7.32 10^3/uL (1.2-6.7); Basophils % 0.4; HCT 37.9 % (40.0-50.0); HGB 12.6 g/dL (13.5-17.5); Immature Grans % 0.5; Lymphocytes % 9.7; MCH 31.7 pg (27.0-33.0); MCHC 33.2 % (32.0-36.0); MCV 95.2 fL (80-95); MPV 9.3 fL (8.0-11.0); Monocytes % 8.9; Neutrophils % 77.5; Nucleated RBC 0 %; Platelet Count 276 10^3/uL (130-400); RBC 3.98 10^6/uL (4.36-5.78); RDW 13.2 % (11.8-14.1); RDW-SD 46.3 fL; WBC 9.45 10^3/uL (4.4-10.8)
[2021-12-03 13:56] LABS: ALT 21 U/L (16-63); AST 22 U/L (15-37); Albumin 3.4 g/dL (3.4-5.0); Alkaline Phosphatase 109 U/L (46-116); Anion Gap 9.1 mmol/L (3-11); BUN 16 mg/dL (7-18); Bilirubin, Total 0.3 mg/dL (0.2-1.0); CO2 27.9 mmol/L (21.0-32.0); CREATININE 0.8 mg/dL (0.70-1.30); Chloride 101 mmol/L (98-107); Glucose 93 mg/dL (74-106); Potassium 3.8 mmol/L (3.5-5.1); Sodium 138 mmol/L (136-145); Total Protein 7.9 g/dL (6.4-8.2)
== END 2021-12-31 23:59 | disposition home or self-care (01) ==
LOC: INF 01:13
PROVIDERS: PCP Family Medicine; Visit Provider Internal Medicine Medical Oncology
DX: C15.9 Malignant neoplasm of esophagus, unspecified (principal); Z45.2 Encounter for adjustment and management of vascular access device
CPT/HCPCS: 36591; 80053; 83735; 85025

== ENCOUNTER 2022-11-04 14:27 | Outpatient (REF) | payer MEDICAID, SELFPAY ==
[2022-11-04 14:42] LABS: Abs Immature Grans 0.05 10^3/uL (0.0-0.06); Absolute Basophil Count 0.06 10^3/uL (0.0-0.2); Absolute Eosinophil Count 0.27 10^3/uL (0.0-0.7); Absolute Lymphocyte Count 1.23 10^3/uL (1.2-3.4); Absolute Monocyte Count 1.22 10^3/uL (0.1-0.8); Absolute Neutrophil Count 7.54 10^3/uL (1.2-6.7); Basophils % 0.6; Eosinophils % 2.6; HCT 26.8 % (40.0-50.0); HGB 8.5 g/dL (13.5-17.5); Immature Grans % 0.5; Lymphocytes % 11.9; MCH 24.5 pg (27.0-33.0); MCHC 31.7 % (32.0-36.0); MCV 77 fL (80-95); Monocytes % 11.8; Neutrophils % 72.6; Platelet Count 674 10^3/uL (130-400); RBC 3.47 10^6/uL (4.36-5.78); RDW 18.4 % (11.8-14.1); RDW-SD 50.4 fL; WBC 10.37 10^3/uL (4.4-10.8)
[2022-11-04 14:58] LABS: ALT 9 U/L (16-63); AST 14 U/L (15-37); Albumin 2.7 g/dL (3.4-5.0); Alkaline Phosphatase 172 U/L (46-116); Anion Gap 6.1 mmol/L (3-11); BUN 12 mg/dL (7-18); Bilirubin, Total 0.2 mg/dL (0.2-1.0); CO2 29.9 mmol/L (21.0-32.0); CREATININE 0.7 mg/dL (0.70-1.30); Calcium 8.9 mg/dL (8.5-10.1); Chloride 103 mmol/L (98-107); Estimated GFR 108.82 (mL/min/1.73m2); Glucose 108 mg/dL (74-106); Magnesium 2.1 mg/dL (1.8-2.4); Potassium 4.2 mmol/L (3.5-5.1); Sodium 139 mmol/L (136-145); Total Protein 8.1 g/dL (6.4-8.2)
== END 2022-11-04 14:28 | disposition home or self-care (01) ==
LOC: LBN 14:27
PROVIDERS: PCP Family Medicine; Visit Provider Internal Medicine Medical Oncology
DX: C15.9 Malignant neoplasm of esophagus, unspecified (principal)
CPT/HCPCS: 80053; 83735; 85025

== ENCOUNTER 2022-11-04 21:43 | Outpatient (RCR) | payer MEDICAID, SELFPAY | END 2022-11-30 23:59 | disposition home or self-care (01) | LOC: INF 21:43 | PROVIDERS: PCP Family Medicine; Visit Provider Internal Medicine Medical Oncology | DX: M05.79 Rheumatoid arthritis with rheumatoid factor of multiple sites without organ or systems involvement (principal) | CPT/HCPCS: 36415 ==

== ENCOUNTER 2022-12-23 02:12 | Outpatient (RCR) | payer MEDICAID, SELFPAY ==
[2022-12-09] VITALS (9 sets, daily range): BP systolic 91–121; BP diastolic 61–79; PULSE 76–98; RESP 16–17; TEMP 35.8–36.9; O2SAT 97–100
[2022-12-09] MEDS: diphenhydrAMINE 25 MG CAP PO (09:00)
[2022-12-09] MEDS: Normal Saline Flush 10 ML SYR IVP (09:00)
[2022-12-09] MEDS: Acetaminophen 325 MG TAB 650 MG PO (09:00)
[2022-12-09] MEDS: methylPREDNISolone SUCC 125 MG VIAL 100 MG IVP (09:00)
[2022-12-09] MEDS: riTUXimab-PVVR 1,000 MG in Normal Saline 150 ML 62.5 MG IVPB (09:19)
[2022-12-09] MEDS: Heparin 500 UNITS/5 ML SYRINGE IV (13:37)
[2022-12-23] VITALS (7 sets, daily range): BP systolic 99–125; BP diastolic 66–77; PULSE 93–109; RESP 16–18; TEMP 36.3–37.3; O2SAT 98–99
[2022-12-23] MEDS: methylPREDNISolone SUCC 125 MG VIAL 100 MG IVP (09:36)
[2022-12-23] MEDS: Normal Saline Flush 10 ML SYR IVP (09:36)
[2022-12-23] MEDS: diphenhydrAMINE Elixir 25 MG/10 ML CUP PO (09:36)
[2022-12-23] MEDS: riTUXimab-PVVR 1,000 MG in Normal Saline 150 ML 62.5 MG IVPB (10:10)
== END 2022-12-31 23:59 | disposition home or self-care (01) ==
LOC: INF 02:12
PROVIDERS: PCP Family Medicine; Visit Provider Internal Medicine Medical Oncology
DX: M05.9 Rheumatoid arthritis with rheumatoid factor, unspecified (principal)
CPT/HCPCS: 96365; 96366; 96374; 96375; 96413; 96415; 96523; J2930; Q5119